=== PATIENT | male | born 1995 | race Caucasian/White ===

== ENCOUNTER → 2016-09-12 | Outpatient (CLI) | payer OTHER ==
[~2016-09-12] MED LIST: ACET-1256 PO; [UNRECOGNIZED DRUG - CODE] IV
--- NOTE | 2016-09-12 13:50 | DIAGNOSTIC IMAGING REPORT ---
ULTRASOUND OF THE THYROID GLAND CLINICAL HISTORY: Thyroid nodule. COMPARISON STUDY: Thyroid ultrasound dated 09/06/2015. TECHNIQUE: Real-time, grayscale, and color flow sonography of the thyroid gland is performed utilizing a high-frequency linear transducer. Images are reviewed in the transverse and longitudinal planes. FINDINGS: Right lobe: The right lobe of the thyroid gland is normal in size and homogeneous in echotexture, measuring 4.4 x 1.6 x 1.8 cm. A 2 mm hypoechoic nodule is present in the right lower pole. Left lobe: The left lobe of the thyroid gland is normal in size and homogeneous in echotexture, measuring 4.5 x 1.4 x 1.5 cm. A honeycomb nodule in the anterior left mid pole measures 0.8 x 0.3 x 0.6 cm (previously measured 0.5 x 0.3 x 0.5 cm). Isthmus: The thyroid isthmus is normal in appearance and measures 0.4 cm in AP diameter. IMPRESSION: 1. The thyroid gland is normal in size and echotexture. 2. Subcentimeter low suspicion nodules are similar to previous. Electronically signed by: Prieto Valdes M.D. 09/12/2016 1:49 PM Dictated Date/Time: 09/12/2016 1:47 PM
== END | disposition home or self-care (01) ==
LOC: C.ULTR 12:51
PROVIDERS: ATTEND Nurse Practitioner Family
DX: Z86.39 Personal history of other endocrine, nutritional and metabolic disease (principal)

== ENCOUNTER 2017-03-15 15:38 | Emergency (ER) | payer OTHER ==
[~2017-03-15] VITALS: Ht 167.6 cm; Wt 102.9 kg
[2017-03-15 15:41] VITALS: Ht 167.6 cm; Wt 102.9 kg
[2017-03-15] MEDS ORDERED: MoRPHine SULFATE 2 MG/ML CARP IV STA (16:09)
[2017-03-15 16:31] LABS: BASO % 0.2 %; BASO ABS # 0.02 K/uL (0-0.2); COMPLETE YES; EOS % 1.1 %; IG% 0.1 %; LYMPH ABS # 3.53 K/uL (1.2-3.4); MEAN CELL VOLUME 84.7 fL (80-100); MEAN CORPUSCULAR HEMOGLOBIN 28.2 pg (25-34); MEAN CORPUSCULAR HGB CONC 33.3 g/dl (32-36); MEAN PLATELET VOLUME 9.4 fL (7.4-10.4); MONO % 8.6 %; PLATELET COUNT 223 K/uL (130-400); RED BLOOD COUNT 5.67 M/uL (4.7-6.1); WHITE BLOOD COUNT 9.29 K/uL (4.8-10.8)
[2017-03-15 16:32] LABS: URINE APPEARANCE CLOUDY (CLEAR); URINE BILIRUBIN NEG (NEG); URINE COLOR DK YELLOW; URINE NITRITE NEG (NEG); URINE PH 5.5 (4.5-7.5); URINE SPECIFIC GRAVITY 1.033 (1.000-1.030); UROBILINOGEN NEG (NEG); ZZUR CULT IF INDIC CLEAN CATCH NO
[2017-03-15 16:36] LABS: MANUAL MICROSCOPIC REQUIRED? NO; REVIEW REQ? NO
[2017-03-15 16:51] LABS: CALCIUM 9.5 mg/dl (8.5-10.1); CREATININE 0.87 mg/dl (0.60-1.40); POTASSIUM 3.9 mmol/L (3.5-5.1)
--- NOTE | 2017-03-15 16:52 | DIAGNOSTIC IMAGING REPORT ---
PA CHEST RADIOGRAPH AND UPRIGHT AND SUPINE AP RADIOGRAPHS OF THE ABDOMEN CLINICAL HISTORY: Left upper quadrant abdominal pain. COMPARISON STUDY: Chest radiograph and abdominal series June 18, 2016. FINDINGS: Lung volumes are normal and lungs are clear. No pneumothorax or pleural effusion is present. Cardiac size is normal. Mediastinal contours are normal. There is no evidence of pulmonary edema. There is no free air. The bowel gas pattern is normal. No urinary calculi are identified. IMPRESSION: 1. No free air or evidence of bowel obstruction. 2. No acute cardiopulmonary findings. Electronically signed by: Mian Garces M.D. 03/15/2017 4:50 PM Dictated Date/Time: 03/15/2017 4:49 PM
[2017-03-15 17:19] VITALS: BP 126/82; PULSE 59; TEMP 36.8; O2SAT 98
--- NOTE | 2017-03-15 23:05 | EMERGENCY ROOM VISIT NOTE ---
History First contact with patient: 15:47 Chief Complaint: ABDOMINAL PAIN Stated Complaint: BLOATED,ABD PRESSURE Nursing Triage Summary: see triage note History of Present Illness The patient is a 21 year old white male who presents to the Emergency Room with complaints of abdominal fullness, pressure, and bloating that developed around 1 :30 today. He states he had a normal lunch. He did not eat anything unusual. 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 He has had similar symptoms in the past. Sometimes it has resulted in bowel obstruction, other times examinations have been normal. He states he normally has changed his bag 3 or 4 times by this point in the day but has only done it once so far today. There has been minimal output. He denies any nausea or vomiting. No fevers or chills. No abdominal trauma. A female accompanies him today. Review of Systems REVIEW OF SYSTEM: HEENT: No dizziness, visual problems, hearing loss, or tinnitus. There is no difficulty swallowing and no oral lesions are present. LYMPH: No adenopathy. PULMONARY: No cough, shortness of breath, sputum production or hemoptysis. CARDIOVASCULAR: No chest pain, palpitations, shortness of breath or peripheral edema. GASTROINTESTINAL: No diarrhea, nausea, vomiting. GENITOURINARY: No dysuria, frequency, urgency or nocturia. NEUROLOGIC: No weakness, muscle tenderness, epilepsy or history of neurological problems. MUSCULOSKELETAL: No history of joint tenderness/swelling. No history of arthritis or arthralgias. SKIN: No rashes or lesions. PSYCHIATRIC: No history of depression or mental illness. ENDOCRINE: No history of diabetes, thyroid disorders, or abnormal hair growth. Past Medical/Surgical History Medical Problems: (1) Attention deficit hyperactivity disorder (2) Familial polyposis (3) hemophilia (4) Hypopotassemia (5) Ileostomy Status Surgical Problems: (1) H/O colectomy Family History Cancer Diabetes mellitus Hypertension Social History Smoking Status: Never Smoker Smokeless Tobacco Use: No Alcohol Use: none Drug Use: none Marital Status: single Housing Status: lives with family Occupation Status: student Current/Historical Medications Scheduled PRN Acetaminophen (Tylenol), 1,000 MG PO Q6 PRN for Pain Antihemophilic Factor (Recombi (Recombinate), 1 DOSE IV UD PRN for Bleeding Physical Exam Vital Signs Date Time Temp Pulse Resp B/P (MAP) Pulse Ox O2 Delivery O2 Flow Rate FiO2 7/22/17 17:19 36.8 59 16 126/82 98 03/15/17 15:41 36.8 59 16 126/82 98 Room Air Physical Exam Gen.: Well-developed, well-nourished, young white male, in no acute distress. Sitting on a bed. Alert and oriented. Skin:Warm and dry with good turgor. No rashes or lesions. No ecchymosis or erythema. The patient is not diaphoretic. No abrasions. Heart: Heart RRR. No MGR. Peripheral pulses are 2+. Lungs: Lungs are clear to auscultation. No crackles rhonchi or wheezing. Good air movement. The patient is able to take a deep breath. Abdomen: Abdomen was inspected, auscultated, and palpated. Bowel sounds are infrequent but present 4. Soft, diffuse discomfort to palpation, worse in the left upper quadrant. No hepato-splenomegaly. No masses noted. No rebound. No pain over McBurney's point. No CVA tenderness. Ileostomy bag present. Musculoskeletal: Gross motor function of the upper and lower extremities is intact and unremarkable. Medical Decision & Procedures ER Provider Diagnostic Interpretation: Acute abdominal x-ray series obtained today was read by radiology as unremarkable. No evidence for obstruction. Laboratory Results 03/15/17 16:20 Red Blood Count 5.67, Mean Corpuscular Volume 84.7, Mean Corpuscular Hemoglobin 28.2, Mean Corpuscular Hemoglobin Concent 33.3, Mean Platelet Volume 9.4, Neutrophils (%) (Auto) 52.0, Lymphocytes (%) (Auto) 38.0, Monocytes (%) (Auto) 8.6, Eosinophils (%) (Auto) 1.1, Basophils (%) (Auto) 0.2, Neutrophils # (Auto) 4.83, Lymphocytes # (Auto) 3.53, Monocytes # (Auto) 0.80, Eosinophils # (Auto) 0.10, Basophils # (Auto) 0.02 03/15/17 16:20 Test 03/15/17 16:10 03/15/17 16:20 Urine Color DK YELLOW Urine Appearance CLOUDY (CLEAR) Urine pH 5.5 (4.5-7.5) Urine Specific [place] 1.033 (1.000-1.030) Urine Protein TRACE (NEG) Urine Glucose (UA) NEG (NEG) Urine Ketones TRACE (NEG) Urine Occult Blood NEG (NEG) Urine Nitrite NEG (NEG) Urine Bilirubin NEG (NEG) Urine Urobilinogen NEG (NEG) Urine Leukocyte Esterase NEG (NEG) Urine WBC (Auto) 1-5 /hpf (0-5) Urine RBC (Auto) 0-4 /hpf (0-4) Urine Hyaline Casts (Auto) 5-10 /lpf (0-5) Urine Epithelial Cells (Auto) 10-20 /lpf (0-5) Urine Bacteria (Auto) NEG (NEG) White Blood Count 9.29 K/uL (4.8-10.8) Red Blood Count 5.67 M/uL (4.7-6.1) Hemoglobin 16.0 g/dL (14.0-18.0) Hematocrit 48.0 % (42-52) Mean Corpuscular Volume 84.7 fL (80-100) Mean Corpuscular Hemoglobin 28.2 pg (25-34) Mean Corpuscular Hemoglobin Concent 33.3 g/dl (32-36) Platelet Count 223 K/uL (130-400) Mean Platelet Volume 9.4 fL (7.4-10.4) Neutrophils (%) (Auto) 52.0 % Lymphocytes (%) (Auto) 38.0 % Monocytes (%) (Auto) 8.6 % Eosinophils (%) (Auto) 1.1 % Basophils (%) (Auto) 0.2 % Neutrophils # (Auto) 4.83 K/uL (1.4-6.5) Lymphocytes # (Auto) 3.53 K/uL (1.2-3.4) Monocytes # (Auto) 0.80 K/uL (0.11-0.59) Eosinophils # (Auto) 0.10 K/uL (0-0.5) Basophils # (Auto) 0.02 K/uL (0-0.2) RDW Standard Deviation 41.2 fL (36.4-46.3) RDW Coefficient of Variation 13.4 % (11.5-14.5) Immature Granulocyte % (Auto) 0.1 % Immature Granulocyte # (Auto) 0.01 K/uL (0.00-0.02) Anion Gap 2.0 mmol/L (3-11) Est Creatinine Clear Calc Drug Dose 150.9 ml/min Estimated GFR () 143.0 Estimated GFR (Non- 123.4 BUN/Creatinine Ratio 8.0 (10-20) Calcium Level 9.5 mg/dl (8.5-10.1) Total Bilirubin 0.8 mg/dl (0.2-1) Direct Bilirubin 0.2 mg/dl (0-0.2) Aspartate Amino Transf (AST/SGOT) 26 U/L (15-37) Alanine Aminotransferase (ALT/SGPT) 42 U/L (12-78) Alkaline Phosphatase 81 U/L (45-117) Total Protein 7.7 gm/dl (6.4-8.2) Albumin 4.2 gm/dl (3.4-5.0) Lipase 169 U/L (73-393) CBC, chem panel, amylase, and lipase were obtained. They're all unremarkable. UA shows trace ketones. Otherwise unremarkable. Medications Administered Medications (Trade) Dose Ordered Sig/Teodora Route Start Time Stop Time Status Last Admin Dose Admin Morphine Sulfate (MoRPHine SULFATE INJ) 2 mg NOW STAT IV 03/15/17 16:09 03/15/17 16:10 DC 03/15/17 16:28 2 MG Morphine 2 mg IV ED Course Patient was educated regarding today's findings. Conservative care measures were discussed. IV was established. Labs were obtained. He was given morphine 2 mg IV for his abdominal discomfort. Acute abdominal x-ray series was also obtained. Patient was reevaluated. He stated that a large amount of air and green stool had just been produced in his ileostomy bag. His bloating sensation had entirely resolved. He verbalizes that he thinks there was just an air pocket in his bowel. Now feels better and desires discharge. I think this is reasonable. Return to the ED for any acute changes or worsening of symptoms. Maintain hydration. Follow up with his PCP as needed. Patient did request a work note to prove that he was here today. Medical Decision Possibility of gastroparesis, abdominal spasm, muscle strain, obstruction, viral illness, and food borne illness were considered among others Blood Pressure Screening Patient's blood pressure: Normal blood pressure Impression Primary Impression: Left upper quadrant pain Departure Information Referrals Farzana Goel (PCP) Patient Instructions My [facility]
[2017-03-24] MEDS ORDERED: [UNRECOGNIZED DRUG - CODE] IV (16:35)
== END 2017-03-15 17:20 | disposition home or self-care (01) ==
LOC: C.EDB 15:39
DX: R10.12 Left upper quadrant pain (principal); D66 Hereditary factor VIII deficiency; Z93.2 Ileostomy status; Z90.49 Acquired absence of other specified parts of digestive tract; Z83.3 Family history of diabetes mellitus; Z82.49 Family history of ischemic heart disease and other diseases of the circulatory system

== ENCOUNTER 2017-03-21 18:16 | Emergency (ER) | payer OTHER ==
[~2017-03-21] VITALS: Ht 172.7 cm; Wt 104.6 kg
[2017-03-21 18:19] VITALS: TEMP 36.7; Ht 172.7 cm; Wt 104.6 kg
[2017-03-21] MEDS ORDERED: FACTOR 8/HUMATE-P/RECOMBINATE ONE (19:15)
[2017-03-21] MEDS ORDERED: RECOMBINATE INTER IV ONE (19:15)
--- NOTE | 2017-03-21 19:34 | DIAGNOSTIC IMAGING REPORT ---
HEAD WITHOUT CONTRAST (CT) CT DOSE: 638.56 mGycm HISTORY: Trauma right head impact, hemophilia TECHNIQUE: Multiaxial CT images of the head were performed without the use of intravenous contrast. A dose lowering technique was utilized adhering to the principles of ALARA. Comparison: None. Findings: The paranasal sinuses and mastoid air cells are clear. The calvarium and skull base are intact. The ventricles and sulci are within normal limits. There is no mass, hematoma, midline shift, or acute infarct. Impression: No acute intracranial abnormality. The above report was generated using voice recognition software. It may contain grammatical, syntax or spelling errors. Electronically signed by: Greg Duque M.D. 03/21/2017 7:33 PM Dictated Date/Time: 03/21/2017 7:32 PM
[2017-03-21] MEDS ORDERED: ACETAMINOPHEN 500 MG TAB PO STA (19:59)
--- NOTE | 2017-03-21 20:35 | EMERGENCY ROOM VISIT NOTE ---
History Report prepared by Meseret: Austyn Carmen Under the Supervision of: Dr. Vickey Delatorre M.D. First contact with patient: 18:31 Chief Complaint: HEAD INJURY (MINOR) Stated Complaint: HIT HEAD HAVE HEMOPHILIA BLEED FACTOR History of Present Illness The patient is a 22 year old male who presents to the Emergency Room with complaints of constant headache beginning about 7 hours. The patient states that he was doing yard work and stepped the wrong way. He reports that he stepped on a rake, and it flew up and hit him in the head. The patient notes that he hit himself in the right hinduism. He states that he came to the ED because he has a history of Hemophilia A. The patient reports that his hematopathologist told him to go to the ED, have a CT scan performed, and receive a 100% replacement with any head trauma. He notes that he has had a history of internal bleeding before. Pt denies LOC, visual changes, neck pain, chest pain, breathing difficulties, nausea, vomiting, abdominal pain, back pain , extremity pain, numbness, weakness, open wounds, active bleeding, or other complaints. Source of History: patient Onset: 7 hours ago Position: head Quality: ache Timing: constant Review of Systems See HPI for pertinent positives and negatives. A total of ten systems were reviewed and were otherwise negative. Past Medical & Surgical Medical Problems: (1) Attention deficit hyperactivity disorder (2) Familial polyposis (3) hemophilia (4) Hypopotassemia (5) Ileostomy Status Surgical Problems: (1) H/O colectomy Family History Cancer Diabetes mellitus Hypertension Social History Smoking Status: Current Every Day Smoker Alcohol Use: none Drug Use: none Marital Status: single Housing Status: lives with family Occupation Status: student Current/Historical Medications Scheduled PRN Acetaminophen (Tylenol), 1,000 MG PO Q6H PRN for Pain Antihemophilic Factor (Recombi (Recombinate), 1 DOSE IV UD PRN for Bleeding Allergies Coded Allergies: NSAIDs (Verified Allergy, Unknown, hemophilia, 03/15/17) Aspirin (Verified Adverse Reaction, Unknown, hemophilia, 03/15/17) Physical Exam Vital Signs Date Time Temp Pulse Resp B/P (MAP) Pulse Ox O2 Delivery O2 Flow Rate FiO2 03/21/17 18:19 36.7 85 18 136/86 99 Room Air Physical Exam GENERAL: Awake, alert, well-appearing, in no distress HENT: Normocephalic, atraumatic. Oropharynx unremarkable. Mild edema and tenderness to the right hinduism area. EYES: Normal conjunctiva. Sclera non-icteric. NECK: Supple. No nuchal rigidity. FROM. No JVD. RESPIRATORY: Clear to auscultation. CARDIAC: Regular rate, normal rhythm. Extremities warm and well perfused. Pulses equal. ABDOMEN: Soft, non-distended. No tenderness to palpation. No rebound or guarding. No masses. Ileostomy on the left lower side. RECTAL: Deferred. MUSCULOSKELETAL: Chest examination reveals no tenderness. The back is symmetrical on inspection without obvious abnormality. There is no CVA tenderness to palpation. No joint edema. LOWER EXTREMITIES: Calves are equal size bilaterally and non-tender. No edema. No discoloration. NEURO: Normal sensorium. No sensory or motor deficits noted. SKIN: No rash or jaundice noted. Medical Decision & Procedures ER Provider Diagnostic Interpretation: Radiology results as stated below per my review and radiologist interpretation: HEAD WITHOUT CONTRAST (CT) CT DOSE: 638.56 mGycm HISTORY: Trauma right head impact, hemophilia TECHNIQUE: Multiaxial CT images of the head were performed without the use of intravenous contrast. A dose lowering technique was utilized adhering to the principles of ALARA. Comparison: None. Findings: The paranasal sinuses and mastoid air cells are clear. The calvarium and skull base are intact. The ventricles and sulci are within normal limits. There is no mass, hematoma, midline shift, or acute infarct. Impression: No acute intracranial abnormality. The above report was generated using voice recognition software. It may contain grammatical, syntax or spelling errors. Electronically signed by: Greg Duque M.D. 03/21/2017 7:33 PM Dictated Date/Time: 03/21/2017 7:32 PM Medications Administered Medications (Trade) Dose Ordered Sig/Teodora Route Start Time Stop Time Status Last Admin Dose Admin Antihemophilic Factor 4710 inter.unit/Syringe 15 ml @ 5 mls/min NOW ONCE IV 03/21/17 19:15 03/21/17 19:18 DC 03/21/17 19:35 5 MLS/MIN ED Course 182: I reviewed the patient's previous records. 1840: The patient was evaluated in room C05. A complete history and physical exam was performed. 1914: Ordered Antihemophilic Factor 4710 inter.unit/Syringe 15 ml @ 5 mls/min Protocol IV 1958: Ordered Tylenol Tab 1000 mg PO 1800: I reevaluated the patient. Discussed results and discharge instructions: he verbalized understanding and agreement. The patient is ready for discharge. Medical Decision Prior records/ancillary studies reviewed. Triage Nursing notes reviewed and agree them. Additional history obtained from the patient's girlfriend. The patient's history was concerning for traumatic head injury along with hemophilia Differential diagnosis: Etiologies such as contusion, fracture, subdural hematoma, concussion, epidural hematoma, intraparenchymal hemorrhage, as well as other traumatic pathologies were entertained. Physical examination findings: As above. ER treatment provided: P.o. Tylenol IV factor replacement after consultation with pharmacy. The patient received 4710 international units. On reassessment the patient felt better. Diagnostics interpreted by me: Imaging studies: CT scan as above It appears the patient has a very mild closed head injury. His protocol as for CT imaging and factor replacement. This was done in accordance with standard protocol. By the evaluation outlined above emergent etiologies such as fracture, subdural hematoma, epidural hematoma, intraparenchymal hemorrhage, as well as others were deemed relatively unlikely. The patient was informed about the findings as listed above. All questions were answered and he was pleased with the treatment. Return instructions were outlined and the patient was discharged in stable condition. Referral: The patient was referred back to his primary care physician for follow-up in 2 to 3 days for a recheck of the current condition. Head Trauma GCS Score: 15 Impression Primary Impression: Closed head injury Additional Impression: hemophilia Scribe Attestation The scribe's documentation has been prepared under my direction and personally reviewed by me in its entirety. I confirm that the note above accurately reflects all work, treatment, procedures, and medical decision making performed by me. Departure Information Dispostion Home / Self-Care Referrals Farzana Goel (PCP) Forms HOME CARE DOCUMENTATION FORM, IMPORTANT VISIT INFORMATION Patient Instructions My [facility] Additional Instructions Rest and avoid strenuous activities for the next few days. NO ALCOHOL OR DRUGS! Avoid stimulants like caffeine, red bull, mountain dew, "energy" drinks, etc. Tylenol(acetaminophen) may be used for headaches. Use 1000mg every six hours as needed. Avoid using more than 4000mg in a 24 hour period. Avoid anti-inflammatories such as aspirin, ibuprofen, Alleve, naprosyn, Motrin, or Advil as these can interfere with blood clotting and lead to bleeding within the brain after a traumatic injury. Problems could arise over the next 24 to 48 hours. You should not be left alone and MUST go to the hospital immediately if you: -Have a headache that suddenly gets worse. -Have any bleeding or bruising issues. -Are very drowsy or cannot be woken up from sleep. -Can't recognize people or places. -Have repeated vomiting. -Behave unusually, seemed confused, or start acting irritable. -Have a seizure (arms and legs start jerking uncontrollably). -Have weak or numb arms or legs. -Are unsteady on your feet -Experience slurred speech or difficulty speaking. Follow-up with your primary care physician in 2 to 3 days for a recheck of your current condition. Problem Qualifiers
[2017-03-21 20:47] VITALS: BP 149/92; PULSE 67; O2SAT 100
[2017-03-24] MEDS ORDERED: [UNRECOGNIZED DRUG - CODE] IV (16:35)
== END 2017-03-21 20:49 | disposition home or self-care (01) ==
LOC: C.EDB 18:17 → C.EDC 20:49
DX: S09.90XA Unspecified injury of head, initial encounter (principal); D66 Hereditary factor VIII deficiency; W22.8XXA Striking against or struck by other objects, initial encounter; F90.9 Attention-deficit hyperactivity disorder, unspecified type; Z93.2 Ileostomy status; Z90.49 Acquired absence of other specified parts of digestive tract; Z80.9 Family history of malignant neoplasm, unspecified; Z83.3 Family history of diabetes mellitus; Z82.49 Family history of ischemic heart disease and other diseases of the circulatory system; F17.210 Nicotine dependence, cigarettes, uncomplicated

== ENCOUNTER 2017-03-24 21:24 | Emergency (ER) | payer OTHER ==
[~2017-03-24] VITALS: Ht 170.2 cm; Wt 105.3 kg
[~2017-03-24 21:24] MED LIST changes: -ACET-1256 PO
[2017-03-24] MEDS ORDERED: ACET-1256 PO (21:27)
[2017-03-24 21:31] VITALS: TEMP 36.6; Ht 170.2 cm; Wt 105.3 kg
[2017-03-24] MEDS ORDERED: ACETAMINOPHEN 500 MG TAB PO STA (21:38)
[2017-03-24] MEDS ORDERED: FACTOR 8/HUMATE-P/RECOMBINATE ONE (22:00)
[2017-03-24 22:01] LABS: BASO % 0.3 %; BASO ABS # 0.03 K/uL (0-0.2); COMPLETE YES; EOS % 0.7 %; HEMATOCRIT 48.1 % (42-52); IG% 0.4 %; LYMPH % 41.2 %; LYMPH ABS # 4.63 K/uL (1.2-3.4); MEAN CELL VOLUME 85.6 fL (80-100); MEAN CORPUSCULAR HEMOGLOBIN 28.8 pg (25-34); MEAN CORPUSCULAR HGB CONC 33.7 g/dl (32-36); MEAN PLATELET VOLUME 9.7 fL (7.4-10.4); MONO % 7.9 %; NEUT % 49.5 %; PLATELET COUNT 224 K/uL (130-400); RED BLOOD COUNT 5.62 M/uL (4.7-6.1); WHITE BLOOD COUNT 11.23 K/uL (4.8-10.8)
[2017-03-24 22:10] LABS: PARTIAL THROMBOPLASTIN RATIO 1.6; PROTHROMBIN TIME (PATIENT) 10.3 SECONDS (9.0-12.0)
--- NOTE | 2017-03-24 22:16 | DIAGNOSTIC IMAGING REPORT ---
CT SCAN OF THE BRAIN WITHOUT IV CONTRAST CLINICAL HISTORY: Head injury. COMPARISON STUDY: CT of the brain dated 03/21/2017. TECHNIQUE: Unenhanced axial CT scan of the brain is performed from the vertex to the skull base. Automated dose control exposure was utilized. A dose lowering technique was utilized adhering to the principles of ALARA. CT DOSE: Reported separately under the concurrently performed CT scan of the facial bones. FINDINGS: Brain parenchyma: The brain parenchyma is normal in appearance. There is no hemorrhage, mass effect, or evidence of acute territorial ischemia by CT criteria. Petersen-white matter is preserved. No extra-axial fluid collection is seen. Ventricles, sulci, cisterns: Normal in configuration. Intracranial vasculature: The visualized intracranial vasculature at the skull base is normal in appearance. Calvarium: There is no depressed calvarial fracture. Sinuses and mastoids: The visualized paranasal sinuses are clear. The mastoid air cells are well pneumatized. Orbits: The bony orbits are grossly intact. IMPRESSION: No acute intracranial abnormality and no significant change from 03/21/2017. Electronically signed by: Prieto Valdes M.D. 03/24/2017 10:15 PM Dictated Date/Time: 03/24/2017 10:14 PM
--- NOTE | 2017-03-24 22:19 | DIAGNOSTIC IMAGING REPORT ---
CT SCAN OF THE FACIAL BONES WITHOUT IV CONTRAST CLINICAL HISTORY: Head injury. COMPARISON STUDY: CT of the brain performed concurrently on 03/24/2017. TECHNIQUE: High-resolution CT scan of the facial bones is performed. Images are reviewed in the axial, sagittal, and coronal planes. IV contrast was not administered for this examination. A dose lowering technique was utilized adhering to the principles of ALARA. CT DOSE: 982.62 mGy.cm FINDINGS: The skeletal structures are well mineralized. There is no evidence of facial bone fracture. The bony orbits are intact and the orbital contents are within normal limits. The zygomatic arches, nasal bones, and pterygoid plates are preserved. The maxilla and mandible are intact. There are no layering blood products within the paranasal sinuses. The sinuses and mastoids are clear. The visualized calvarium and upper cervical spine are maintained. Partially imaged brain parenchyma is within normal limits. IMPRESSION: There is no evidence of facial bone fracture. Electronically signed by: Prieto Valdes M.D. 03/24/2017 10:18 PM Dictated Date/Time: 03/24/2017 10:13 PM
[2017-03-24] MEDS ORDERED: RECOMBINATE INTER IV ONE (22:30)
[2017-03-24 22:31] LABS: ALB/GLOB RATIO 1.1 (0.9-2); CALCIUM 9.6 mg/dl (8.5-10.1); MAGNESIUM 1.9 mg/dl (1.8-2.4); POTASSIUM 3.7 mmol/L (3.5-5.1)
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
[2017-03-25 00:02] VITALS: BP 126/73; PULSE 61; O2SAT 97
== END 2017-03-25 00:05 | disposition home or self-care (01) ==
LOC: C.EDB 21:25 → C.EDA 03-25 00:05
DX: S09.90XA Unspecified injury of head, initial encounter (principal); W22.8XXA Striking against or struck by other objects, initial encounter; F90.9 Attention-deficit hyperactivity disorder, unspecified type; Z93.2 Ileostomy status; Z80.9 Family history of malignant neoplasm, unspecified; Z83.3 Family history of diabetes mellitus; Z82.49 Family history of ischemic heart disease and other diseases of the circulatory system

== ENCOUNTER 2017-06-13 23:09 | Emergency (ER) | payer OTHER ==
[~2017-06-13] VITALS: Ht 170.2 cm; Wt 111.1 kg
[~2017-06-13 23:09] MED LIST changes: +ACET-1256 PO
[2017-06-13 23:13] VITALS: Ht 170.2 cm; Wt 111.1 kg
[2017-06-14 00:22] LABS: BASO % 0.2 %; BASO ABS # 0.02 K/uL (0-0.2); COMPLETE YES; EOS % 0.6 %; HEMATOCRIT 47.9 % (42-52); IG% 0.2 %; LYMPH ABS # 4.76 K/uL (1.2-3.4); MEAN CELL VOLUME 84.9 fL (80-100); MEAN CORPUSCULAR HEMOGLOBIN 28.5 pg (25-34); MEAN CORPUSCULAR HGB CONC 33.6 g/dl (32-36); MEAN PLATELET VOLUME 9.6 fL (7.4-10.4); MONO % 7.3 %; NEUT % 54.7 %; PLATELET COUNT 231 K/uL (130-400); RED BLOOD COUNT 5.64 M/uL (4.7-6.1); WHITE BLOOD COUNT 12.86 K/uL (4.8-10.8)
[2017-06-14 00:41] LABS: BUN/CREATININE RATIO 9.3 (10-20); CALCIUM 9.5 mg/dl (8.5-10.1); CREATININE 0.92 mg/dl (0.60-1.40); POTASSIUM 3.7 mmol/L (3.5-5.1)
[2017-06-14] MEDS ORDERED: TRAMADOL HCL 50 MG TAB PO STA (00:43)
[2017-06-14 01:00] VITALS: BP 146/86; PULSE 68; TEMP 36.8; O2SAT 97
--- NOTE | 2017-06-14 01:35 | DIAGNOSTIC IMAGING REPORT ---
KUB CLINICAL HISTORY: Left lower quadrant abdominal pain. FINDINGS: 3 AP supine abdominal radiographs are compared to study dated 03/15/2017 and correlated with abdominal CT dated 05/05/2016. There is a nonobstructed abdominal bowel gas pattern. No evidence of intraperitoneal free air is seen on these supine views. There are no abnormal abdominal calcifications. The bony structures appear intact. IMPRESSION: Nonobstructed abdominal bowel gas pattern. Electronically signed by: Prieto Valdes M.D. 06/14/2017 1:34 AM Dictated Date/Time: 06/14/2017 1:33 AM
--- NOTE | 2017-06-14 01:39 | EMERGENCY ROOM VISIT NOTE ---
History Report prepared by Meseret: Carmenza Peralta Under the Supervision of: Dr. Nadine Ferreira D.O. First contact with patient: 23:35 Chief Complaint: ABDOMINAL PAIN Stated Complaint: ABDOMINAL PAIN Nursing Triage Summary: pt states has an iliostomy and is having abd pain and is having some red coming out History of Present Illness The patient is a 22 year old male who presents to the Emergency Room with complaints of worsening abdominal pain starting today. The patient states that he has an ileostomy for FFP. He reports that he is having more pain than normal and has had irritation around his stoma. He notes that when he eats or drinks something red, the output becomes bright red. He states that today he drank fruit punch and now it is coming out dark red. The patient states that the last time he had dark red output was when he had a prolapse. He states that normally it would be bright red, not dark red. He notes he has been having normal amounts of output. He complains that sometimes he has a little bleeding from his skin. The patient denies cough, fever, chills, urinary symptoms, nausea, and vomiting. He currently rates his pain as a 4/10 in severity. Source of History: patient Onset: today Position: abdomen Symptom Intensity: 4/10 Timing: worsening Modifying Factors (Worsening): other (eating red things) Associated Symptoms: No fevers, No chills, No cough, No nausea, No vomiting , No urinary symptoms Note: The patient complains of a little bleeding from his skin. Review of Systems Pt denies headache, change in vision, fevers, chest pain, shortness of breath, nausea, vomiting, diarrhea, pain with urination, and melena. Past Medical & Surgical Medical Problems: (1) Attention deficit hyperactivity disorder (2) Familial polyposis (3) hemophilia (4) Hypopotassemia (5) Ileostomy Status Surgical Problems: (1) H/O colectomy Family History Cancer Diabetes mellitus Hypertension Social History Smoking Status: Never Smoker Alcohol Use: none Drug Use: none Marital Status: in relationship Housing Status: lives with family Occupation Status: employed Current/Historical Medications Scheduled PRN Acetaminophen (Tylenol), 1,000 MG PO Q6H PRN for Pain Antihemophilic Factor (Recombi (Recombinate), 1 DOSE IV UD PRN for Bleeding Allergies Coded Allergies: NSAIDs (Verified Allergy, Unknown, hemophilia, 06/14/17) Aspirin (Verified Adverse Reaction, Unknown, hemophilia, 06/14/17) Physical Exam Vital Signs Date Time Temp Pulse Resp B/P (MAP) Pulse Ox O2 Delivery O2 Flow Rate FiO2 06/14/17 01:00 36.8 68 18 146/86 97 Room Air 06/13/17 23:13 37.1 78 18 143/86 97 Room Air Physical Exam GENERAL: alert, well appearing, well nourished, no distress, non-toxic EYE EXAM: normal conjunctiva, PERRL and EOM's grossly intact OROPHARYNX: no exudate, no erythema, lips, buccal mucosa, and tongue normal and mucous membranes are moist NECK: supple, no nuchal rigidity, no adenopathy, non-tender LUNGS: Clear to auscultation. Normal chest wall mechanics HEART: no murmurs, S1 normal and S2 normal ABDOMEN: abdomen soft, non-tender, normo-active bowel sounds, no masses, no rebound or guarding. Left abdominal wall ileostomy. Reddish brown liquid in bag. Upon removal of the bag, some friable tissue noted with small amount of bleeding. No surrounding erythema or evidence of cellulitis. No gross bleeding from stoma itself. Other surgical scars noted on the abdomen and are well healed. Bedside Hemoccult of liquid from patient's ostomy bag faintly heme positive. BACK: Back is symmetrical on inspection and there is no deformity, no midline tenderness, no CVA tenderness. SKIN: no rashes and no bruising UPPER EXTREMITIES: upper extremities are grossly normal. Full range of motion, normal pulses. LOWER EXTREMITIES: No pitting edema. Full range of motion, normal pulses. NEURO EXAM: Normal sensorium, cranial nerves II-XII grossly intact, normal speech, no gross weakness of arms, no gross weakness of legs. Medical Decision & Procedures ER Provider Diagnostic Interpretation: Radiology results have been interpreted by the radiologist and reviewed by me. KUB CLINICAL HISTORY: Left lower quadrant abdominal pain. FINDINGS: 3 AP supine abdominal radiographs are compared to study dated 03/15/2017 and correlated with abdominal CT dated 05/05/2016. There is a nonobstructed abdominal bowel gas pattern. No evidence of intraperitoneal free air is seen on these supine views. There are no abnormal abdominal calcifications. The bony structures appear intact. IMPRESSION: Nonobstructed abdominal bowel gas pattern. Electronically signed by: Prieto Valdes M.D. 06/14/2017 1:34 AM Dictated Date/Time: 06/14/2017 1:33 AM Per me: No definite SBO. Laboratory Results 06/14/17 00:07 Red Blood Count 5.64, Mean Corpuscular Volume 84.9, Mean Corpuscular Hemoglobin 28.5, Mean Corpuscular Hemoglobin Concent 33.6, Mean Platelet Volume 9.6, Neutrophils (%) (Auto) 54.7, Lymphocytes (%) (Auto) 37.0, Monocytes (%) (Auto) 7.3, Eosinophils (%) (Auto) 0.6, Basophils (%) (Auto) 0.2, Neutrophils # (Auto) 7.03, Lymphocytes # (Auto) 4.76, Monocytes # (Auto) 0.94, Eosinophils # (Auto) 0.08, Basophils # (Auto) 0.02 06/14/17 00:07 Test 06/14/17 00:07 White Blood Count 12.86 K/uL (4.8-10.8) Red Blood Count 5.64 M/uL (4.7-6.1) Hemoglobin 16.1 g/dL (14.0-18.0) Hematocrit 47.9 % (42-52) Mean Corpuscular Volume 84.9 fL (80-100) Mean Corpuscular Hemoglobin 28.5 pg (25-34) Mean Corpuscular Hemoglobin Concent 33.6 g/dl (32-36) Platelet Count 231 K/uL (130-400) Mean Platelet Volume 9.6 fL (7.4-10.4) Neutrophils (%) (Auto) 54.7 % Lymphocytes (%) (Auto) 37.0 % Monocytes (%) (Auto) 7.3 % Eosinophils (%) (Auto) 0.6 % Basophils (%) (Auto) 0.2 % Neutrophils # (Auto) 7.03 K/uL (1.4-6.5) Lymphocytes # (Auto) 4.76 K/uL (1.2-3.4) Monocytes # (Auto) 0.94 K/uL (0.11-0.59) Eosinophils # (Auto) 0.08 K/uL (0-0.5) Basophils # (Auto) 0.02 K/uL (0-0.2) RDW Standard Deviation 42.2 fL (36.4-46.3) RDW Coefficient of Variation 13.8 % (11.5-14.5) Immature Granulocyte % (Auto) 0.2 % Immature Granulocyte # (Auto) 0.03 K/uL (0.00-0.02) Anion Gap 9.0 mmol/L (3-11) Est Creatinine Clear Calc Drug Dose 149.8 ml/min Estimated GFR () 136.4 Estimated GFR (Non- 117.6 BUN/Creatinine Ratio 9.3 (10-20) Lactic Acid Level 1.3 mmol/L (0.4-2.0) Calcium Level 9.5 mg/dl (8.5-10.1) Laboratory results per my review. Medications Administered Medications (Trade) Dose Ordered Sig/Teodora Route Start Time Stop Time Status Last Admin Dose Admin Tramadol HCl (Ultram Tab) 50 mg NOW STAT PO 06/14/17 00:43 06/14/17 00:44 DC 06/14/17 00:48 50 MG Tramadol HCl (Ultram Home Pack) 1 homepack UD ONCE PO 06/14/17 02:00 06/14/17 02:00 DC 06/14/17 01:48 1 HOMEPACK ED Course 2336: The patient was evaluated in room A9B. A complete history and physical exam was performed. 0043: Ordered Tramadol HCl 50 mg PO. 0054: Upon reevaluation, the patient is feeling better. I discussed the findings and the treatment plan with the patient. He verbalizes agreement and understanding. The patient was discharged home. 0200: Ordered Tramadol HCl 1 homepack PO. Medical Decision Etiologies such as appendicitis, diverticulitis, PUD, biliary pathology, UTI, pancreatitis, obstruction, mesenteric ischemia, aortic pathology, infections, inflammatory bowel disease, renal colic, as well as others were entertained. Patient well-appearing here, abdominal exam reassuring despite patient history, labs reassuring. Patient states that he chronically has an elevated white blood cell count. Discussed with patient given extensive past medical history and ileostomy, to have a low threshold for any evolving symptoms and to return to the ER immediately. He verbalized understanding was agreeable with plan. Patient aware of all results. At this time I feel the family positive Hemoccult testing bedside could possibly be due to the slightly irritated friable tissue at the edge of the stoma. Discussed with patient close follow- up with wound care clinic or stoma clinic, as patient has had issues with this in the past. I feel patient is reliable to return to the ER for any issues and to follow closely as an outpatient. Impression Primary Impression: Abdominal pain Additional Impressions: GI bleed Stoma dermatitis Scribe Attestation The scribe's documentation has been prepared under my direction and personally reviewed by me in its entirety. I confirm that the note above accurately reflects all work, treatment, procedures, and medical decision making performed by me. Departure Information Dispostion Home / Self-Care Referrals Farzana Goel (PCP) Forms HOME CARE DOCUMENTATION FORM, IMPORTANT VISIT INFORMATION Patient Instructions My [facility] Additional Instructions Please continue regular medications as prescribed. Please continue to closely monitor the skin around her stoma as a result small amount of irritation and bleeding noted. If you notice persistent blood, feel that the drainage into the bag is becoming black or more grossly bloody, you develop vomiting, fevers, worsening abdominal pain, dizziness, or any other or concerning symptoms, please return to the ER immediately. Please refrain from drinking or eating any substance that is read so as to not confused the possibility of blood in your bag contents. Please note that your white blood cell count here was mildly elevated. Your red blood cell counts were normal. Problem Qualifiers Primary Impression: Abdominal pain Abdominal location: periumbilical Qualified Codes: R10.33 - Periumbilical pain Additional Impressions: GI bleed GI bleed type/associated pathology: unspecified gastrointestinal hemorrhage type Qualified Codes: K92.2 - Gastrointestinal hemorrhage, unspecified
[2017-06-14] MEDS ORDERED: TRAMADOL HCL 50 MG HOME PACK ONE (01:46)
[2017-06-14] MEDS ORDERED: TRAMADOL HCL 50 MG HOME PACK PO ONE (02:00)
== END 2017-06-14 01:45 | disposition home or self-care (01) ==
LOC: C.EDB 23:10 → C.EDA 06-14 01:45
DX: R10.33 Periumbilical pain (principal); K92.2 Gastrointestinal hemorrhage, unspecified; F90.9 Attention-deficit hyperactivity disorder, unspecified type; D66 Hereditary factor VIII deficiency; E87.6 Hypokalemia; Z83.3 Family history of diabetes mellitus; Z82.49 Family history of ischemic heart disease and other diseases of the circulatory system

== ENCOUNTER 2017-06-17 03:11 | Emergency (ER) | payer OTHER ==
[~2017-06-17] VITALS: Ht 170.2 cm; Wt 111.1 kg
[2017-06-17 03:16] VITALS: TEMP 36.6; Ht 170.2 cm; Wt 111.1 kg
[2017-06-17] MEDS ORDERED: ONDANSETRON INJ 2 MG/ML 2 ML VIAL IV STA (03:39)
[2017-06-17] MEDS ORDERED: SODIUM CHLORIDE 0.9% 1000ML 1,000 ML IV ONE (03:45)
[2017-06-17 03:57] LABS: MEAN CELL VOLUME 84.4 fL (80-100); MEAN CORPUSCULAR HEMOGLOBIN 29.7 pg (25-34); MEAN CORPUSCULAR HGB CONC 35.2 g/dl (32-36); MEAN PLATELET VOLUME 9.7 fL (7.4-10.4); PLATELET COUNT 240 K/uL (130-400); RED BLOOD COUNT 5.69 M/uL (4.7-6.1); WHITE BLOOD COUNT 13.16 K/uL (4.8-10.8)
[2017-06-17] MEDS ORDERED: OPTIRAY 320 IV PRN (04:15)
[2017-06-17 04:20] LABS: BUN/CREATININE RATIO 6.3 (10-20); CALCIUM 9.4 mg/dl (8.5-10.1); CREATININE 0.97 mg/dl (0.60-1.40); POTASSIUM 3.8 mmol/L (3.5-5.1)
[2017-06-17 04:22] LABS: ALB/GLOB RATIO 1.1 (0.9-2)
[2017-06-17 04:49] LABS: BASO ABS # 0.12 K/uL (0-0.2); BASOPHIL % 0.9 % (0-2); COMPLETE YES; LYMPH ABS # 5.41 K/uL (1.2-3.4); LYMPHOCYTE % 41.1 %; MYELOCYTE % 0.9 %; NEUTROPHILS % 43.7 %; VARIANT LYM ABS # 1.65 K/uL; VARIANT LYMPHOCYTE % 12.5 %
--- NOTE | 2017-06-17 07:09 | DIAGNOSTIC IMAGING REPORT ---
ABD/PELVIS IV AND ORAL CONT CT DOSE: 1168.87 mGy.cm HISTORY: Pain. Nausea. Ab pain near stoma (left side abd pain) TECHNIQUE: Multiaxial CT images of the abdomen and pelvis were performed following the use of intravenous and oral contrast. A dose lowering technique was utilized adhering to the principles of ALARA. COMPARISON STUDY: 05/05/2016 FINDINGS: Patient is again noted to be status post complete colectomy. There has been revision with takedown of the right anterior ostomy and placement of a left mid abdominal ostomy. There are no obstructive bowel characteristics. The small bowel pattern is considered unremarkable within limitations of a small amount of oral contrast. Lung bases are clear. Liver spleen and pancreas appear uniform. Kidneys are considered negative for hydronephrosis. There are findings of a midline incision. Bladder is midline. There is no significant abdominal pelvic or inguinal derek pathology. Several small reactive inguinal nodes are present unaltered from the prior study. There is no evidence for abscess or collection. Gallbladder is mildly contracted. IMPRESSION: 1. Interval revision of the patient's ostomy with a interval takedown of the right sided ostomy and placement of a left anterior ostomy. 2. Changes consistent with prior colectomy. 3. No evidence for abscess collection or obstruction. 4. No acute process is noted. The above report was generated using voice recognition software. It may contain grammatical, syntax or spelling errors. Electronically signed by: Greg Duque M.D. 06/17/2017 7:08 AM Dictated Date/Time: 06/17/2017 7:00 AM
[2017-06-17 07:24] VITALS: BP 114/52; PULSE 58; O2SAT 99
--- NOTE | 2017-06-17 21:59 | EMERGENCY ROOM VISIT NOTE ---
History First contact with patient: 03:19 Chief Complaint: ABDOMINAL PAIN Stated Complaint: STOMACH PAIN Nursing Triage Summary: see triage note History of Present Illness The patient is a 22 year old male who presents to the Emergency Room with complaints of left-sided abdominal pain for the past several days. The patient was initially seen at this facility a few days ago with this complaint. At that time the patient was noted to have some mild irritation of his stoma and a slightly elevated white blood cell count. Evidently the patient chronically has an elevated white blood cell count. He has had multiple abdominal surgeries following a colectomy. The patient has been eating and drinking as normal. He feels like his colostomy output is normal. He has not begun new medications but has slowly developed increasing pain. He has been using tramadol with some minimal improvement of his symptoms. The patient feels like he is not improving and elected to return to the ER today. At his visit a few days ago he elected against CT imaging, however now he feels that he would like this to make sure that nothing more insidious is occurring. He rates his overall discomfort a 5/10. Review of Systems More than 10 systems were reviewed and otherwise negative with the exception of history of present illness. Past Medical/Surgical History Medical Problems: (1) Attention deficit hyperactivity disorder (2) Familial polyposis (3) hemophilia (4) Hypopotassemia (5) Ileostomy Status Surgical Problems: (1) H/O colectomy Family History Cancer Diabetes mellitus Hypertension Social History Smoking Status: Never Smoker Alcohol Use: none Drug Use: none Marital Status: in relationship Housing Status: lives with family Occupation Status: employed Current/Historical Medications No Active Prescriptions or Reported Meds Physical Exam Vital Signs Date Time Temp Pulse Resp B/P (MAP) Pulse Ox O2 Delivery O2 Flow Rate FiO2 06/17/17 07:24 58 20 114/52 99 06/17/17 06:42 65 18 135/78 98 Room Air 06/17/17 05:10 66 18 124/66 96 Room Air 06/17/17 03:16 36.6 81 18 137/86 98 Room Air Physical Exam VITALS: Vitals are noted on the nurse's note and reviewed by myself. Vital signs stable. GENERAL: Well-developed, well-nourished, white male, who is in no acute distress and resting comfortably. Patient is cooperative with the examination. HEAD: Normocephalic atraumatic. HEART: Regular rate and rhythm without murmurs gallops or rubs. LUNGS: Clear to auscultation bilaterally without wheezes, rales or rhonchi. No retractions or accessory muscle use. ABDOMEN: Positive normal bowel sounds x 4. Soft, nontender, without masses or organomegaly. No significant tenderness around the left sided colectomy and stoma. The stoma itself appears slightly irritated without active bleeding or significant friability. MUSCULOSKELETAL: No muscle atrophy, erythema, or edema noted. Full range of motion without joint tenderness in all extremities. NEURO: Patient was alert and oriented to person place and time. CN II through XII grossly intact. Medical Decision & Procedures ER Provider Diagnostic Interpretation: ABD/PELVIS IV AND ORAL CONT CT DOSE: 1168.87 mGy.cm HISTORY: Pain. Nausea. Ab pain near stoma (left side abd pain) TECHNIQUE: Multiaxial CT images of the abdomen and pelvis were performed following the use of intravenous and oral contrast. A dose lowering technique was utilized adhering to the principles of ALARA. COMPARISON STUDY: 05/05/2016 FINDINGS: Patient is again noted to be status post complete colectomy. There has been revision with takedown of the right anterior ostomy and placement of a left mid abdominal ostomy. There are no obstructive bowel characteristics. The small bowel pattern is considered unremarkable within limitations of a small amount of oral contrast. Lung bases are clear. Liver spleen and pancreas appear uniform. Kidneys are considered negative for hydronephrosis. There are findings of a midline incision. Bladder is midline. There is no significant abdominal pelvic or inguinal derek pathology. Several small reactive inguinal nodes are present unaltered from the prior study. There is no evidence for abscess or collection. Gallbladder is mildly contracted. IMPRESSION: 1. Interval revision of the patient's ostomy with a interval takedown of the right sided ostomy and placement of a left anterior ostomy. 2. Changes consistent with prior colectomy. 3. No evidence for abscess collection or obstruction. 4. No acute process is noted. Laboratory Results 06/17/17 03:47 Red Blood Count 5.69, Mean Corpuscular Volume 84.4, Mean Corpuscular Hemoglobin 29.7, Mean Corpuscular Hemoglobin Concent 35.2, Mean Platelet Volume 9.7 06/17/17 03:47 Test 06/17/17 03:47 White Blood Count 13.16 K/uL (4.8-10.8) Red Blood Count 5.69 M/uL (4.7-6.1) Hemoglobin 16.9 g/dL (14.0-18.0) Hematocrit 48.0 % (42-52) Mean Corpuscular Volume 84.4 fL (80-100) Mean Corpuscular Hemoglobin 29.7 pg (25-34) Mean Corpuscular Hemoglobin Concent 35.2 g/dl (32-36) Platelet Count 240 K/uL (130-400) Mean Platelet Volume 9.7 fL (7.4-10.4) RDW Standard Deviation 41.4 fL (36.4-46.3) RDW Coefficient of Variation 13.7 % (11.5-14.5) Neutrophils % (Manual) 43.7 % Lymphocytes % (Manual) 41.1 % Variant Lymphocytes % (manual) 12.5 % Monocytes % (Manual) 0.9 % Basophils % (Manual) 0.9 % (0-2) Myelocytes % 0.9 % Neutrophils # (Manual) 5.75 K/uL (1.4-6.5) Total Absolute Neutrophils 5.75 K/uL (1.4-6.5) Lymphocytes # (Manual) 5.41 K/uL (1.2-3.4) Absolute Variant Lymphocytes 1.65 K/uL Total Absolute Lymphocytes 7.05 K/uL (1.2-3.4) Monocytes # (Manual) 0.12 K/uL (0.11-0.59) Basophils # (Manual) 0.12 K/uL (0-0.2) Myelocytes # 0.12 K/uL (0-0) Red Blood Cell Morphology Unremarkable Anion Gap 9.0 mmol/L (3-11) Est Creatinine Clear Calc Drug Dose 142.1 ml/min Estimated GFR () 127.9 Estimated GFR (Non- 110.4 BUN/Creatinine Ratio 6.3 (10-20) Calcium Level 9.4 mg/dl (8.5-10.1) Total Bilirubin 0.6 mg/dl (0.2-1) Aspartate Amino Transf (AST/SGOT) 38 U/L (15-37) Alanine Aminotransferase (ALT/SGPT) 77 U/L (12-78) Alkaline Phosphatase 94 U/L (45-117) Total Protein 8.2 gm/dl (6.4-8.2) Albumin 4.2 gm/dl (3.4-5.0) Globulin 4.0 gm/dl (2.5-4.0) Albumin/Globulin Ratio 1.1 (0.9-2) Lipase 226 U/L (73-393) Chemistry Specimen Hemolysis Date/Time Source Procedure Growth Status 06/17/17 06:00 Stool C.difficile Toxin B Gene (PCR) - Final No C. difficile toxin B gene detected Complete Medications Administered Medications (Trade) Dose Ordered Sig/Teodora Route Start Time Stop Time Status Last Admin Dose Admin Sodium Chloride 1,000 ml @ 999 mls/hr Q1H1M ONCE IV 06/17/17 03:45 06/17/17 04:45 DC 06/17/17 04:09 999 MLS/HR Ondansetron HCl (Zofran Inj) 4 mg NOW STAT IV 06/17/17 03:39 06/17/17 03:41 DC 06/17/17 04:09 4 MG ED Course Physical exam and history were performed. Nursing notes, EMR, and Medication List were personally reviewed. Patient appears to have left-sided abdominal pain for several days. He has had some surgical processes in the past. He initially elected against CT scan as he has had several bees in the past. He is requesting CT imaging today. IV access was established and labs were obtained. The patient was hydrated and medicated as above. CT scan was ordered with contrast. Stool samples were collected. The patient blood work is as above and was reviewed. He does have a very mildly elevated white blood cell count which is similar to several days ago. This does appear chronic. He does not have a gross anemia, bandemia, or significant electrolyte imbalance. Transaminases are nondiagnostic. His other labs are fairly unremarkable. The CAT scan is as above and does not show evidence of surgical process or abscess. The case was discussed with my attending physician, Dr. Ferreira, and overall we feel the patient is stable for discharge home. He does not appear to have acute surgical abdomen or obvious infection. His stool samples are pending, and this may change care depending on the results. The patient should be following with his primary care physician and possibly his surgeon regarding the stoma as this may be the cause of his irritation. The patient was otherwise invited back to the ER with any new, worsening, or concerning symptoms. The chart was completed utilizing [employer] Speech Voice Recognition Software. Grammatical errors, random word insertions, pronoun errors, and incomplete sentences are an occasional consequence of this system due to software limitations, ambient noise, and hardware issues. Any formal questions or concerns about the content, text, or information contained within the body of this dictation should be directly addressed to the provider for clarification. . Medical Decision Differential diagnosis: Etiologies such as appendicitis, diverticulitis, PUD, biliary pathology, UTI, pancreatitis, obstruction, mesenteric ischemia, aortic pathology, infections, inflammatory bowel disease, renal colic, as well as others were entertained. [place] Drug Monitoring Program Search Results: patient reviewed within database Medication Reconcilliation Current Medication List: was personally reviewed by me Blood Pressure Screening Patient's blood pressure: Normal blood pressure Impression Primary Impression: Abdominal pain Departure Information Dispostion Home / Self-Care Condition GOOD Prescriptions No Active Prescriptions or Reported Meds Referrals Farzana Goel (PCP) Forms HOME CARE DOCUMENTATION FORM, IMPORTANT VISIT INFORMATION Patient Instructions My [facility] Additional Instructions You were seen and evaluated today on an emergency basis only. This is not a substitute for, or an effort to provide, complete comprehensive medical care. It is not possible to recognize and treat all injuries or illnesses in a single emergency department visit. For this reason it is recommended that you followup with your primary care physician for ongoing care and evaluation. Drink plenty of fluids and remain well hydrated. You are welcome to return to the emergency department anytime with new, worsening, or concerning symptoms.
--- NOTE | 2017-06-20 18:39 | Pharmacy Progress Note ---
ED Pharmacist Culture FollowUp Date of Service: Jun 20, 2017. After discussing with Dr. 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 I called but was not able to leave a voicemail. I also emailed the patient to call us back.
[2017-06-21] MEDS ORDERED: LEVO1TAB35 PO (01:53)
[2017-06-21] MEDS ORDERED: OXYC1TAB3 PO (01:53)
== END 2017-06-17 07:29 | disposition home or self-care (01) ==
LOC: C.EDB 03:12
DX: R10.9 Unspecified abdominal pain (principal); Z93.2 Ileostomy status; F90.9 Attention-deficit hyperactivity disorder, unspecified type; D66 Hereditary factor VIII deficiency; Z80.9 Family history of malignant neoplasm, unspecified

== ENCOUNTER 2017-07-15 20:33 | Emergency (ER) | payer OTHER ==
[~2017-07-15] VITALS: Ht 170.2 cm; Wt 114.9 kg
[~2017-07-15 20:33] MED LIST changes: -ACET-1256 PO; +LEVO1TAB35 PO; +OXYC1TAB3 PO; -[UNRECOGNIZED DRUG - CODE] IV
[2017-07-15 20:37] VITALS: TEMP 36.8; Ht 170.2 cm; Wt 114.9 kg
--- NOTE | 2017-07-15 20:53 | EMERGENCY ROOM VISIT NOTE ---
History Report prepared by Meseret: Misael Webster Under the Supervision of: Dr. Matty Goldberg M.D. First contact with patient: 20:40 Chief Complaint: OTHER COMPLAINT Stated Complaint: STOMACH PAINS, SEVERE IRRITATION CAUSING BLEEDING History of Present Illness The patient is a 22 year old male who presents to the Emergency Room with complaints of constant abdominal pain beginning a month ago. The patient states that he has an ileostomy bag and notes that the surrounding skin has become inflamed and painful. He reports that he saw his surgeon two weeks ago and was given nystatin powder and a steroid for poison vangie with no relief of his symptoms. The patient states that his pain has been worsening for the last few days prompting his visit to the emergency department today. He notes that his bag is supposed to be changed every 2-3 days but that he has not changed it in the past 4 days. He denies any fever and chills. Source of History: patient Onset: a month ago Position: abdomen, other Timing: constant Associated Symptoms: No fevers, No chills Note: He also complains of inflamed and painful skin surrounding his ileostomy bag. Review of Systems See HPI for pertinent positives and negatives. A total of ten systems were reviewed and were otherwise negative. Past Medical & Surgical Medical Problems: (1) Attention deficit hyperactivity disorder (2) Familial polyposis (3) hemophilia (4) Hypopotassemia (5) Ileostomy Status Surgical Problems: (1) H/O colectomy Family History Cancer Diabetes mellitus Hypertension Social History Smoking Status: Never Smoker Alcohol Use: none Drug Use: none Marital Status: in relationship Housing Status: lives with family Occupation Status: employed Current/Historical Medications Scheduled Acetaminophen (Tylenol), 1,000 MG PO PRN UD Allergies Coded Allergies: NSAIDs (Verified Allergy, Unknown, hemophilia, 06/17/17) Aspirin (Verified Adverse Reaction, Unknown, hemophilia, 06/17/17) Physical Exam Vital Signs Date Time Temp Pulse Resp B/P (MAP) Pulse Ox O2 Delivery O2 Flow Rate FiO2 07/15/17 23:23 72 18 149/82 97 07/15/17 22:26 76 18 134/71 99 Room Air 07/15/17 20:37 36.8 89 16 156/95 98 Room Air Physical Exam GENERAL: Awake, alert, well-appearing, in no distress HENT: Normocephalic, atraumatic. Oropharynx unremarkable. EYES: Normal conjunctiva. Sclera non-icteric. NECK: Supple. No nuchal rigidity. FROM. No JVD. RESPIRATORY: Clear to auscultation. CARDIAC: Regular rate, normal rhythm. Extremities warm and well perfused. Pulses equal. ABDOMEN: Soft, non-distended. No tenderness to palpation. No rebound or guarding. No masses. Mild redness surrounding left abdominal ileostomy bag, no warmth, no purulence, no crepitus. RECTAL: Deferred. MUSCULOSKELETAL: Chest examination reveals no tenderness. The back is symmetrical on inspection without obvious abnormality. There is no CVA tenderness to palpation. No joint edema. LOWER EXTREMITIES: Calves are equal size bilaterally and non-tender. No edema. No discoloration. NEURO: Normal sensorium. No sensory or motor deficits noted. SKIN: No rash or jaundice noted. Medical Decision & Procedures Laboratory Results 07/15/17 21:15 Red Blood Count 5.67, Mean Corpuscular Volume 85.0, Mean Corpuscular Hemoglobin 29.8, Mean Corpuscular Hemoglobin Concent 35.1, Mean Platelet Volume 10.0 07/15/17 21:15 Test 07/15/17 21:15 White Blood Count 12.63 K/uL (4.8-10.8) Red Blood Count 5.67 M/uL (4.7-6.1) Hemoglobin 16.9 g/dL (14.0-18.0) Hematocrit 48.2 % (42-52) Mean Corpuscular Volume 85.0 fL (80-100) Mean Corpuscular Hemoglobin 29.8 pg (25-34) Mean Corpuscular Hemoglobin Concent 35.1 g/dl (32-36) Platelet Count 215 K/uL (130-400) Mean Platelet Volume 10.0 fL (7.4-10.4) RDW Standard Deviation 41.0 fL (36.4-46.3) RDW Coefficient of Variation 13.4 % (11.5-14.5) Neutrophils % (Manual) 48.1 % Lymphocytes % (Manual) 29.5 % Variant Lymphocytes % (manual) 16.1 % Monocytes % (Manual) 5.4 % Metamyelocytes % 0.9 % Neutrophils # (Manual) 6.08 K/uL (1.4-6.5) Total Absolute Neutrophils 6.08 K/uL (1.4-6.5) Lymphocytes # (Manual) 3.73 K/uL (1.2-3.4) Absolute Variant Lymphocytes 2.03 K/uL Total Absolute Lymphocytes 5.76 K/uL (1.2-3.4) Monocytes # (Manual) 0.68 K/uL (0.11-0.59) Metamyelocytes # 0.11 K/uL (0-0) Red Blood Cell Morphology Unremarkable Anion Gap 8.0 mmol/L (3-11) Est Creatinine Clear Calc Drug Dose 133.7 ml/min Estimated GFR () 116.2 Estimated GFR (Non- 100.3 BUN/Creatinine Ratio 5.5 (10-20) Calcium Level 9.8 mg/dl (8.5-10.1) Total Bilirubin 0.6 mg/dl (0.2-1) Direct Bilirubin 0.1 mg/dl (0-0.2) Aspartate Amino Transf (AST/SGOT) 52 U/L (15-37) Alanine Aminotransferase (ALT/SGPT) 96 U/L (12-78) Alkaline Phosphatase 91 U/L (45-117) Total Protein 8.6 gm/dl (6.4-8.2) Albumin 4.5 gm/dl (3.4-5.0) Lipase 321 U/L (73-393) Laboratory results reviewed by me Medications Administered Medications (Trade) Dose Ordered Sig/Teodora Route Start Time Stop Time Status Last Admin Dose Admin Tramadol HCl (Ultram Tab) 50 mg NOW STAT PO 07/15/17 21:04 07/15/17 21:05 DC 07/15/17 21:11 50 MG Tramadol HCl (Ultram Home Pack) 1 homepack UD ONCE PO 07/15/17 23:15 07/15/17 23:16 DC 07/15/17 23:20 1 HOMEPACK ED Course 2042: The patient was evaluated in room A3. A complete history and physical exam was performed. 2103: Tramadol HCl 50mg PO 2117: I spoke to Dr. Tinajero who is special education assistant for Dr. Cadet - [facility]. He feels as though there is no emergent infection due to the bag being placed a year ago. He note that the patient should make an appointment with Dr. Cadet tomorrow. 2243: I reevaluated the patient. Discussed results and discharge instructions: He verbalized understanding and agreement. The patient is ready for discharge. Medical Decision I reviewed the patient's past medical history, medications, and the nursing notes as described above. Differential diagnoses include: cellulitis vs. fungal infection and gastroenteritis. The patient is a 22-year-old gentleman with a past medical history of colonic resection and status post ostomy with takedown and revision in new placement on left 1 year prior to arrival presents for the fourth time to emergency department within 4 weeks for similar pain around his ostomy site per history of present illness. On arrival the patient is well-appearing, in no acute distress, afebrile with stable vital signs. On exam, ostomy site has some mild redness but no warmth or crepitus or purulent discharge. Appears improved compared to prior photos from May which patient has at the bedside. Given multiple unremarkable workups and benign exam I feel emergent processes unlikely. Will check labs to assess for possible early infectious process. Labs with WBC 12, nonspecific and otherwise unremarkable. D/w Dr. Tinajero who is special education assistant for Dr. Cadet (patients surgeon), who agrees that emergent process unlikely and OK for outpatient f/u tomorrow. Findings and plan for follow-up reviewed with patient. Patient agreeable and d/c'd per discharge instructions. Medication Reconcilliation Current Medication List: was personally reviewed by me Blood Pressure Screening Patient's blood pressure: Normal blood pressure Blood pressure disposition: Did not require urgent referral Impression Primary Impression: Complication of ostomy Scribe Attestation The scribe's documentation has been prepared under my direction and personally reviewed by me in its entirety. I confirm that the note above accurately reflects all work, treatment, procedures, and medical decision making performed by me. Departure Information Dispostion Home / Self-Care Referrals Farzana Goel (PCP) Patient Instructions My [facility] Additional Instructions Please follow up with your surgeon, Dr. Cadet, for re-evaluation tomorrow. Continue your Nystatin as directed by your surgeon. Otherwise, your exam and lab results did not show signs of an emergent condition at this time. Return to the emergency department for worsening symptoms as described in the accompanying instructions.
[2017-07-15] MEDS ORDERED: ACET-1256 PO (21:00)
[2017-07-15] MEDS ORDERED: TRAMADOL HCL 50 MG TAB PO STA (21:04)
[2017-07-15 21:30] LABS: HEMATOCRIT 48.2 % (42-52); MEAN CORPUSCULAR HEMOGLOBIN 29.8 pg (25-34); MEAN CORPUSCULAR HGB CONC 35.1 g/dl (32-36); PLATELET COUNT 215 K/uL (130-400); RED BLOOD COUNT 5.67 M/uL (4.7-6.1); WHITE BLOOD COUNT 12.63 K/uL (4.8-10.8)
[2017-07-15 21:57] LABS: BUN/CREATININE RATIO 5.5 (10-20); CALCIUM 9.8 mg/dl (8.5-10.1); CREATININE 1.05 mg/dl (0.60-1.40)
[2017-07-15 22:04] LABS: POTASSIUM 3.6 mmol/L (3.5-5.1)
[2017-07-15 22:43] LABS: COMPLETE YES; LYMPH ABS # 3.73 K/uL (1.2-3.4); LYMPHOCYTE % 29.5 %; META ABS # 0.11 K/uL (0-0); METAMYELOCYTE % 0.9 %; NEUTROPHILS % 48.1 %; VARIANT LYM ABS # 2.03 K/uL; VARIANT LYMPHOCYTE % 16.1 %
[2017-07-15] MEDS ORDERED: TRAMADOL HCL 50 MG HOME PACK PO ONE (23:15)
[2017-07-15 23:23] VITALS: BP 149/82; PULSE 72; O2SAT 97
== END 2017-07-15 23:26 | disposition home or self-care (01) ==
LOC: C.EDB 20:35 → C.EDA 23:26
DX: K94.19 Other complications of enterostomy (principal); F90.9 Attention-deficit hyperactivity disorder, unspecified type; D66 Hereditary factor VIII deficiency; Z90.49 Acquired absence of other specified parts of digestive tract; Z80.9 Family history of malignant neoplasm, unspecified; Z83.3 Family history of diabetes mellitus; Z82.49 Family history of ischemic heart disease and other diseases of the circulatory system

== ENCOUNTER → 2017-09-05 | Outpatient (CLI) | payer OTHER ==
[~2017-09-05] MED LIST changes: +ACET-1256 PO; -LEVO1TAB35 PO; -OXYC1TAB3 PO
--- NOTE | 2017-09-05 13:14 | DIAGNOSTIC IMAGING REPORT ---
ULTRASOUND OF THE THYROID GLAND CLINICAL HISTORY: Thyroid nodules. COMPARISON STUDY: Thyroid ultrasound dated 09/12/2016. TECHNIQUE: Real-time, grayscale, and color flow sonography of the thyroid gland is performed utilizing a high-frequency linear transducer. Images are reviewed in the transverse and longitudinal planes. FINDINGS: Right lobe: The right lobe of the thyroid gland is normal in size and homogeneous in echotexture, measuring 5.2 x 1.6 x 1.6 cm. A 2 mm hypoechoic nodule is incidentally noted. Left lobe: The left lobe of the thyroid gland is normal in size and homogeneous in echotexture, measuring 4.8 x 1.4 x 1.6 cm. A honeycomb nodule in the anterior midpole measures 0.8 x 0.4 x 0.7 cm (previously measured 0.8 x 0.3 x 0.6 cm). Isthmus: The thyroid isthmus appears mildly thickened measuring 0.7 cm in AP diameter. IMPRESSION: 1. The thyroid gland is normal in size and homogeneous in echotexture. 2. A low suspicion subcentimeter nodule in the left lobe is unchanged. Electronically signed by: Prieto Valdes M.D. 09/05/2017 1:13 PM Dictated Date/Time: 09/05/2017 1:12 PM
== END | disposition home or self-care (01) ==
LOC: C.ULTR 12:27
PROVIDERS: ATTEND Nurse Practitioner Family
DX: E04.2 Nontoxic multinodular goiter (principal)

== ENCOUNTER 2017-09-30 22:52 | Emergency (ER) | payer OTHER ==
[~2017-09-30] VITALS: Ht 175.3 cm; Wt 102.4 kg
[2017-09-30 23:05] VITALS: TEMP 36.8; Ht 175.3 cm; Wt 102.4 kg
--- NOTE | 2017-09-30 23:38 | EMERGENCY ROOM VISIT NOTE ---
History Report prepared by Meseret: Juliana Corona Under the Supervision of: Dr. Nadine Ferreira D.O. First contact with patient: 23:35 Chief Complaint: ABDOMINAL PAIN Stated Complaint: SEVERE PAIN AND SWELLING ABDOMINAL-S/P SURGERY Nursing Triage Summary: pt reports he had surgery for ostomy revision yesterday at [facility], discharged today at 3pm. states "my pain was moderate, but now it's worse." pt states he had nausea/vomiting while at [facility]. denies urinary symptoms. liquid brown stool noted in ostomy bag. noted IV in right wrist, pt states "they leave it in , i'm a hemophiliac. they said my levels were okay." pt alert and oriented x4. abdomen noted to have multiple scars, bowel sounds WNL. History of Present Illness The patient is a 22 year old male who presents to the Emergency Room with complaints of persistent abdominal pain that started a few hours ago. The patient rates his pain a 7/10 in severity. He had an ostomy revision yesterday at [facility]. The patient has hemophilia. He notes they are checking his factor levels and they were high. He reports he was discharged from the hospital post-op today around 3pm. He states his abdomen is swollen and he is unable to get comfortable due to his pain. He notes they prescribed him with 5mg of Oxycodone. He reports he has been passing gas. The patient denies any nausea, chest pain, or trouble breathing. His girlfriend thinks he felt warm earlier and was having chills. Source of History: patient Onset: a few hours ago Position: abdomen Symptom Intensity: 7/10 Timing: other (persistent) Associated Symptoms: + chills, No chest pain, No SOB, No nausea Review of Systems See HPI for pertinent positives & negatives. A total of 10 systems reviewed and were otherwise negative. Past Medical & Surgical Medical Problems: (1) Attention deficit hyperactivity disorder (2) Familial polyposis (3) hemophilia (4) Hypopotassemia (5) Ileostomy Status Surgical Problems: (1) H/O colectomy Family History Cancer Diabetes mellitus Hypertension Social History Smoking Status: Current Some Day Smoker Alcohol Use: none Drug Use: none Marital Status: in relationship Housing Status: lives with family Occupation Status: employed Current/Historical Medications Scheduled Acetaminophen (Tylenol), 1,000 MG PO PRN UD Scheduled PRN Oxycodone/Acetaminophen 5MG/325MG (Percocet 5MG/325MG), 1-2 TABLETS PO DIRECTED PRN for Pain Allergies Coded Allergies: NSAIDs (Verified Allergy, Unknown, hemophilia, 09/30/17) Aspirin (Verified Adverse Reaction, Unknown, hemophilia, 09/30/17) Physical Exam Vital Signs Date Time Temp Pulse Resp B/P (MAP) Pulse Ox O2 Delivery O2 Flow Rate FiO2 10/01/17 03:11 93 18 136/94 95 10/01/17 02:10 97 18 146/80 98 Room Air 10/01/17 01:10 84 18 148/80 95 Room Air 10/01/17 00:01 93 18 143/94 94 Room Air 96 149/104 89 135/87 09/30/17 23:05 36.8 98 20 158/97 95 Room Air Physical Exam GENERAL: alert, well appearing, well nourished, no distress, non-toxic EYE EXAM: normal conjunctiva, PERRL and EOM's grossly intact OROPHARYNX: no exudate, no erythema, lips, buccal mucosa, and tongue normal and mildly dry mucous membranes NECK: supple, no nuchal rigidity, no adenopathy, non-tender LUNGS: Clear to auscultation. Normal chest wall mechanics, no w/r/r HEART: no murmurs, S1 normal and S2 normal ABDOMEN: Mild abdominal tenderness in area around stoma, multiple well healed surgical scars, stoma to left of midline, pink and viable appearing intestine noted at stoma sight, no obvious bleeding, liquid brown stool in patient's bag, no surrounding erythema, no ecchymosis BACK: Back is symmetrical on inspection and there is no deformity, no midline tenderness, no CVA tenderness. SKIN: no rashes and no bruising UPPER EXTREMITIES: upper extremities are grossly normal. Nml ROM, Nml pulses. LOWER EXTREMITIES: No pitting edema. Nml ROM, nml pulses. Medical Decision & Procedures ER Provider Diagnostic Interpretation: Radiology results have been interpreted by the radiologist and reviewed by me. CT ABDOMEN & PELVIS with Contrast: Comparison on 06/17/17. Left-sided ostomy. Subcutaneous infiltration and emphysema in the left ventral body wall. Nonspecific particularly if there has been recent procedure. Cellulitis not excluded. No bowel obstruction. Questionable wall thickening of bowel extending out ostomy defect versus incomplete distention. Lack of enteric contrast limits evaluation. Splenomegaly. Liver is also prominent size with possible steatosis. Atelectasis lung bases. Laboratory Results 10/01/17 00:05 Red Blood Count 5.04, Mean Corpuscular Volume 85.3, Mean Corpuscular Hemoglobin 29.6, Mean Corpuscular Hemoglobin Concent 34.7, Mean Platelet Volume 9.7, Neutrophils (%) (Auto) 65.0, Lymphocytes (%) (Auto) 24.1, Monocytes (%) (Auto) 10.1, Eosinophils (%) (Auto) 0.4, Basophils (%) (Auto) 0.1, Neutrophils # (Auto ) 8.54, Lymphocytes # (Auto) 3.17, Monocytes # (Auto) 1.33, Eosinophils # (Auto ) 0.05, Basophils # (Auto) 0.01 10/01/17 00:05 Test 10/01/17 00:05 White Blood Count 13.14 K/uL (4.8-10.8) Red Blood Count 5.04 M/uL (4.7-6.1) Hemoglobin 14.9 g/dL (14.0-18.0) Hematocrit 43.0 % (42-52) Mean Corpuscular Volume 85.3 fL (80-100) Mean Corpuscular Hemoglobin 29.6 pg (25-34) Mean Corpuscular Hemoglobin Concent 34.7 g/dl (32-36) Platelet Count 176 K/uL (130-400) Mean Platelet Volume 9.7 fL (7.4-10.4) Neutrophils (%) (Auto) 65.0 % Lymphocytes (%) (Auto) 24.1 % Monocytes (%) (Auto) 10.1 % Eosinophils (%) (Auto) 0.4 % Basophils (%) (Auto) 0.1 % Neutrophils # (Auto) 8.54 K/uL (1.4-6.5) Lymphocytes # (Auto) 3.17 K/uL (1.2-3.4) Monocytes # (Auto) 1.33 K/uL (0.11-0.59) Eosinophils # (Auto) 0.05 K/uL (0-0.5) Basophils # (Auto) 0.01 K/uL (0-0.2) RDW Standard Deviation 43.4 fL (36.4-46.3) RDW Coefficient of Variation 14.1 % (11.5-14.5) Immature Granulocyte % (Auto) 0.3 % Immature Granulocyte # (Auto) 0.04 K/uL (0.00-0.02) Anion Gap 7.0 mmol/L (3-11) Est Creatinine Clear Calc Drug Dose 158.9 ml/min Estimated GFR () 142.7 Estimated GFR (Non- 123.1 BUN/Creatinine Ratio 7.6 (10-20) Calcium Level 9.1 mg/dl (8.5-10.1) Total Bilirubin 0.9 mg/dl (0.2-1) Aspartate Amino Transf (AST/SGOT) 20 U/L (15-37) Alanine Aminotransferase (ALT/SGPT) 58 U/L (12-78) Alkaline Phosphatase 66 U/L (45-117) Total Protein 7.2 gm/dl (6.4-8.2) Albumin 3.7 gm/dl (3.4-5.0) Globulin 3.5 gm/dl (2.5-4.0) Albumin/Globulin Ratio 1.1 (0.9-2) Laboratory results per my review. Medications Administered Medications (Trade) Dose Ordered Sig/Teodora Route Start Time Stop Time Status Last Admin Dose Admin Fentanyl Citrate (Fentanyl Inj) 100 mcg Q1H PRN IV 10/01/17 00:00 10/01/17 03:48 DC 10/01/17 00:15 100 MCG Ondansetron HCl (Zofran Inj) 4 mg NOW STAT IV 09/30/17 23:49 09/30/17 23:51 DC 10/01/17 00:14 4 MG Sodium Chloride 500 ml @ 999 mls/hr Q31M STAT IV 09/30/17 23:49 10/01/17 00:19 DC 10/01/17 00:05 999 MLS/HR Oxycodone HCl (Roxicodone Immediate Rel Tab) 5 mg NOW STAT PO 10/01/17 02:54 10/01/17 02:55 DC 10/01/17 03:09 5 MG ED Course 2335: The patient was evaluated in room B5. A complete history and physical exam was performed. 2349: Sodium Chloride 500 ml @ 999 mls/hr IV, Zofran Inj 4 mg IV. 0000: Fentanyl Inj 100 mcg IV. 0125: Records were received from [facility] and were reviewed by me. 0243: I spoke with [place]. There is no hemoperitoneum, no evidence or blood collections, no active extravasation. 0246: I updated the patient and discussed results with him. He has no current pain and is comfortable going home. The patient is ready for discharge. 0254: Oxycodone HCl 5 mg PO. Medical Decision Differential diagnosis: Etiologies such as appendicitis, diverticulitis, PUD, biliary pathology, UTI, pancreatitis, obstruction, mesenteric ischemia, aortic pathology, infections, inflammatory bowel disease, renal colic, as well as others were entertained. Pt well appearing despite complaints. Labs with stable H/H and stable mild leukocytosis compared to prior. CT reassuring. Faxed reports from recent surgery at [facility] reviewed. Pt with improved pain here, no vomiting, no fevers. Discussed with pt f/u with his surgeon, continued care of his stoma, hydration, sx to watch/return for, he verbalized understanding and was agreeable with plan. I do not suspect perf, anastomotic leak, abscess, bacteremia/sepsis, persistent bleeding in setting of pt's hemophilia, Pt had already been given instruction by his skein drier at discharge regarding continued dosing of his factor at home. Medication Reconcilliation Current Medication List: was personally reviewed by me Blood Pressure Screening Patient's blood pressure: Elevated blood pressure Blood pressure disposition: Referred to PCP Impression Primary Impression: Abdominal pain Additional Impression: Ileostomy Status Scribe Attestation The scribe's documentation has been prepared under my direction and personally reviewed by me in its entirety. I confirm that the note above accurately reflects all work, treatment, procedures, and medical decision making performed by me. Departure Information Dispostion Home / Self-Care Referrals Farzana Goel (PCP) Patient Instructions My [facility] Additional Instructions Please follow your post op discharge instructions you were previously given. Please continue your medications as prescribed. You may use the pain medications as prescribed. Please continue to monitor your stoma and output for any changes. Please call and follow-up with your surgeon. Continue the recommended administration of factor as instructed by your skein drier. If you have any worsening pain, notice a change in your output or see blood, develop fevers, vomiting, or you have any other new or concerning symptoms, please return to the emergency room. Problem Qualifiers Primary Impression: Abdominal pain Abdominal location: unspecified location Qualified Codes: R10.9 - Unspecified abdominal pain
[2017-09-30] MEDS ORDERED: ONDANSETRON INJ 2 MG/ML 2 ML VIAL IV STA (23:49)
[2017-09-30] MEDS ORDERED: SODIUM CHLORIDE 0.9% 500ML 500 ML IV STA (23:49)
[2017-09-30] MEDS ORDERED: OXYC-57 PO (23:53)
[2017-10-01] MEDS ORDERED: OPTIRAY 320 IV PRN
[2017-10-01] MEDS ORDERED: FENTANYL CITRATE INJ 50 MCG/1 ML 2 ML VIAL IV PRN
[2017-10-01 00:13] LABS: BASO % 0.1 %; BASO ABS # 0.01 K/uL (0-0.2); EOS % 0.4 %; EOS ABS # 0.05 K/uL (0-0.5); HEMOGLOBIN 14.9 g/dL (14.0-18.0); IG# 0.04 K/uL (0.00-0.02); LYMPH % 24.1 %; LYMPH ABS # 3.17 K/uL (1.2-3.4); MEAN CELL VOLUME 85.3 fL (80-100); MEAN CORPUSCULAR HEMOGLOBIN 29.6 pg (25-34); MEAN CORPUSCULAR HGB CONC 34.7 g/dl (32-36); MEAN PLATELET VOLUME 9.7 fL (7.4-10.4); MONO % 10.1 %; MONO ABS # 1.33 K/uL (0.11-0.59); NEUT ABS # 8.54 K/uL (1.4-6.5); PLATELET COUNT 176 K/uL (130-400); RED CELL DISTRIBUTION WIDTH CV 14.1 % (11.5-14.5); RED CELL DISTRIBUTION WIDTH SD 43.4 fL (36.4-46.3); WHITE BLOOD COUNT 13.14 K/uL (4.8-10.8)
[2017-10-01 00:35] LABS: ALBUMIN 3.7 gm/dl (3.4-5.0); CALCIUM 9.1 mg/dl (8.5-10.1); CREATININE 0.86 mg/dl (0.60-1.40); POTASSIUM 3.3 mmol/L (3.5-5.1)
[2017-10-01 00:38] LABS: TOTAL PROTEIN 7.2 gm/dl (6.4-8.2)
[2017-10-01] MEDS ORDERED: OXYCODONE HCL IR 5 MG TAB (IMMEDIATE RELEASE) PO STA (02:54)
[2017-10-01 03:11] VITALS: BP 136/94; PULSE 93; O2SAT 95
--- NOTE | 2017-10-01 06:50 | DIAGNOSTIC IMAGING REPORT ---
CT ABD/PELVIS IV CONTRAST ONLY CLINICAL HISTORY: Increasing abdominal pain. History of ileostomy revision. Hemophilia. COMPARISON STUDY: 06/17/2017 TECHNIQUE: Following the IV administration of 93 mL of Optiray-320, CT scan of the abdomen and pelvis was performed from the lung bases to the proximal femurs. Images are reviewed in the axial, sagittal, and coronal planes. IV contrast was administered without complication. A dose lowering technique was utilized adhering to the principles of ALARA. CT DOSE: 1107.43 mGy.cm FINDINGS: Lower chest: There are minor dependent atelectatic changes. Liver: There is mild hepatic steatosis. No focal masses are visualized. Gallbladder: Unremarkable. Spleen: The spleen remains mildly enlarged measuring 13 cm Pancreas: Unremarkable. Adrenal glands: Unremarkable. Kidneys: There is symmetric renal cortical enhancement. The kidneys are normal in size without hydronephrosis. Bowel: There are postsurgical changes of a prior colectomy. There is a left lower quadrant ileostomy. There are several mildly prominent fluid-filled small bowel loops containing air-fluid levels. A discrete transition zone is not delineated. Lack of enteric contents limits bowel evaluation. There is infiltration of the fat surrounding the ileostomy, likely secondary to recent surgery. There is a small air bubble within the soft tissues, also likely postsurgical. Peritoneum: There is no intraperitoneal free air or abdominal ascites. Vasculature: The abdominal aorta is normal in course and caliber. Adenopathy: None. Pelvic viscera: The bladder, and pelvic viscera are unremarkable. Skeletal structures: No destructive osseous lesions are seen. IMPRESSION: 1. Postsurgical changes of a prior colectomy 2. Left lower quadrant ileostomy. Infiltration of the fat at the level of the ileostomy with subcutaneous gas, likely secondary to recent surgery. 3. Several mildly prominent fluid-filled small bowel loops, but no current evidence of a high-grade bowel obstruction 4. Hepatic steatosis 5. Mild splenomegaly Electronically signed by: Dick Morel M.D. 10/01/2017 6:48 AM Dictated Date/Time: 10/01/2017 6:43 AM
== END 2017-10-01 03:11 | disposition home or self-care (01) ==
LOC: C.EDB 22:54
DX: R10.9 Unspecified abdominal pain (principal); Z93.2 Ileostomy status; D66 Hereditary factor VIII deficiency; D12.6 Benign neoplasm of colon, unspecified; E87.6 Hypokalemia; F17.200 Nicotine dependence, unspecified, uncomplicated; Z83.3 Family history of diabetes mellitus; Z82.49 Family history of ischemic heart disease and other diseases of the circulatory system

== ENCOUNTER 2017-10-02 11:46 | Emergency (ER) | payer OTHER ==
[~2017-10-02] VITALS: Ht 175.3 cm; Wt 98.5 kg
[~2017-10-02 11:46] MED LIST changes: +OXYC-57 PO
[2017-10-02 11:55] VITALS: BP 143/82; PULSE 85; TEMP 36.7; O2SAT 97; Ht 175.3 cm; Wt 98.5 kg
--- NOTE | 2017-10-02 19:17 | EMERGENCY ROOM VISIT NOTE ---
ED Visit Note First contact with patient: 12:05 Chief Complaint: IV request. History of Present Illness: Mr. Carpenter is a 22-year-old white male who ambulates into the ED accompanied by female friend requesting the start of a peripheral IV. Historically patient reports he is a hemophiliac; he takes factor VIII. He goes on to report last week he had surgery for revision in his colon. He was placed on daily factor VIII infusions. He reports today when he attempted to take his factor VIII the IV infiltrated. Currently he reports he is feeling well and is having no complications from his hemophilia or surgery. He just reports that he needs his IV restarted so he can take his factor VIII today. Review of Systems: As noted above in history of present illness. Past Medical History: (1) Attention deficit hyperactivity disorder (2) Familial polyposis (3) hemophilia (4) Hypopotassemia (5) Ileostomy Status Surgical Problems: (1) H/O colectomy Current Medications: Medications Dose Route/Sig Max Daily Dose Days Date Category Dose Instructions Percocet 5MG/325MG (Oxycodone/Acetaminophen) Tab 1-2 Tablets PO DIRECTED PRN 09/30/17 Reported PAIN Tylenol (Acetaminophen) 500 Mg Tab 1,000 Mg PO PRN UD 07/15/17 Reported Allergies to Medications: Aspirin, NSAIDs. Social History: Patient is not employed; he feels safe in his home environment; he denies tobacco use. Physical Examination: Vital Signs: Date Time Temp Pulse Resp B/P (MAP) Pulse Ox O2 Delivery O2 Flow Rate FiO2 10/02/17 11:55 36.7 85 20 143/82 97 Room Air GENERAL: 22-year-old male in no acute distress, nontoxic-appearing, afebrile and hemodynamically stable. NEUROLOGICAL: Awake, alert and oriented to person, place and time. Answering questions appropriately and following commands. Normal gait. ED Course: Patient is assessed as noted above. Patient's medication list was reviewed. Nursing personnel inserted a peripheral IV in his right anterior forearm. Patient was educated about the days visit. Clinical Impression: Peripheral IV insertion. Disposition: Patient discharged home in stable condition accompanied by a female friend. Plan: Patient was encouraged to continue his factor 8 infusions as prescribed. Patient was encouraged to return the ED for any concerning symptoms.
== END 2017-10-02 12:24 | disposition home or self-care (01) ==
LOC: C.EDB 11:49 → C.EDD 12:24
DX: T82.898A Other specified complication of vascular prosthetic devices, implants and grafts, initial encounter (principal); Y84.8 Other medical procedures as the cause of abnormal reaction of the patient, or of later complication, without mention of misadventure at the time of the procedure; D66 Hereditary factor VIII deficiency; F90.9 Attention-deficit hyperactivity disorder, unspecified type; Z98.890 Other specified postprocedural states; Z88.6 Allergy status to analgesic agent

== ENCOUNTER 2017-10-05 16:05 | Emergency (ER) | payer OTHER ==
[~2017-10-05] VITALS: Ht 170.2 cm; Wt 115.0 kg
[2017-10-05 16:39] VITALS: Ht 170.2 cm; Wt 115.0 kg
--- NOTE | 2017-10-05 17:19 | EMERGENCY ROOM VISIT NOTE ---
History First contact with patient: 16:43 Chief Complaint: NEED IV START Stated Complaint: HAD SURGERY AND HAVE HEMOPHILLIA, NEED NEW IV History of Present Illness The patient is a 22 year old male who presents to the Emergency Room requesting IV placement. The patient states that he is a hemophiliac and had recent surgery. He had an ileostomy revision. He states he has been giving himself Factor VIII daily. He had an IV placed here but states that it "blew" yesterday and he removed it. He states he has been healing well from the surgery. He denies any complaints. Review of Systems A complete 6 point review of systems was reviewed with the patient with pertinent positives and negatives as per history of present illness. All else were negative. Past Medical/Surgical History Medical Problems: (1) Attention deficit hyperactivity disorder (2) Familial polyposis (3) hemophilia (4) Hypopotassemia (5) Ileostomy Status Surgical Problems: (1) H/O colectomy Family History Cancer Diabetes mellitus Hypertension Social History Smoking Status: Former Smoker Alcohol Use: none Drug Use: none Marital Status: in relationship Housing Status: lives with family Occupation Status: employed Current/Historical Medications Scheduled Acetaminophen (Tylenol), 1,000 MG PO PRN UD Scheduled PRN Oxycodone/Acetaminophen 5MG/325MG (Percocet 5MG/325MG), 1-2 TABLETS PO DIRECTED PRN for Pain Physical Exam Vital Signs Date Time Temp Pulse Resp B/P (MAP) Pulse Ox O2 Delivery O2 Flow Rate FiO2 10/05/17 17:23 36.9 84 17 130/86 99 10/05/17 16:39 36.9 84 17 130/86 99 Room Air Physical Exam VITALS: Vitals are noted on the nurse's note and reviewed by myself. Vital signs stable. GENERAL: This is a 22-year-old male, in no acute distress, well-developed well- nourished. ABDOMEN: Well-appearing ileostomy in the left lower quadrant. NEURO: Patient was alert and oriented to person place and time. Medical Decision & Procedures Medical Decision The patient was evaluated as above. He presents requesting IV placement. A peripheral IV was placed with no issues. The patient will follow up with his primary care provider as needed. He verbalized understanding of my assessment and treatment plan was discharged home in good condition. Medication Reconcilliation Current Medication List: was personally reviewed by me Blood Pressure Screening Patient's blood pressure: Normal blood pressure Impression Primary Impression: Encounter for intravenous line placement Departure Information Dispostion Home / Self-Care Condition GOOD Referrals Farzana Geol (PCP) Patient Instructions My [facility] Additional Instructions Follow-up with your primary care provider as needed.
[2017-10-05 17:23] VITALS: BP 130/86; PULSE 84; TEMP 36.9; O2SAT 99
== END 2017-10-05 17:23 | disposition home or self-care (01) ==
LOC: C.EDB 16:07 → C.EDD 17:23
DX: T82.898A Other specified complication of vascular prosthetic devices, implants and grafts, initial encounter (principal); Y84.8 Other medical procedures as the cause of abnormal reaction of the patient, or of later complication, without mention of misadventure at the time of the procedure; D66 Hereditary factor VIII deficiency; F90.9 Attention-deficit hyperactivity disorder, unspecified type; D12.6 Benign neoplasm of colon, unspecified; Z87.891 Personal history of nicotine dependence; Z90.49 Acquired absence of other specified parts of digestive tract; Z93.2 Ileostomy status; Z80.9 Family history of malignant neoplasm, unspecified; Z83.3 Family history of diabetes mellitus; Z82.49 Family history of ischemic heart disease and other diseases of the circulatory system

== ENCOUNTER 2017-10-06 20:27 | Emergency (ER) | payer OTHER ==
[~2017-10-06] VITALS: Ht 175.3 cm; Wt 101.5 kg
[2017-10-06 20:48] VITALS: Ht 175.3 cm; Wt 101.5 kg
[2017-10-06] MEDS ORDERED: MoRPHine SULFATE 4 MG/ML 1 ML CARP\\VIAL IV STA (22:45)
[2017-10-06] MEDS ORDERED: ONDANSETRON INJ 2 MG/ML 2 ML VIAL IV STA (22:45)
[2017-10-06 23:25] LABS: BASO % 0.2 %; BASO ABS # 0.02 K/uL (0-0.2); EOS % 1.2 %; EOS ABS # 0.13 K/uL (0-0.5); HEMATOCRIT 45.1 % (42-52); HEMOGLOBIN 15.9 g/dL (14.0-18.0); IG# 0.04 K/uL (0.00-0.02); LYMPH % 33.2 %; LYMPH ABS # 3.75 K/uL (1.2-3.4); MEAN CELL VOLUME 83.4 fL (80-100); MEAN CORPUSCULAR HEMOGLOBIN 29.4 pg (25-34); MEAN CORPUSCULAR HGB CONC 35.3 g/dl (32-36); MEAN PLATELET VOLUME 9.3 fL (7.4-10.4); MONO % 7.3 %; MONO ABS # 0.82 K/uL (0.11-0.59); NEUT % 57.7 %; NEUT ABS # 6.53 K/uL (1.4-6.5); PLATELET COUNT 243 K/uL (130-400); RED CELL DISTRIBUTION WIDTH CV 13.5 % (11.5-14.5); RED CELL DISTRIBUTION WIDTH SD 41.1 fL (36.4-46.3); WHITE BLOOD COUNT 11.29 K/uL (4.8-10.8)
[2017-10-06 23:45] LABS: CREATININE 0.85 mg/dl (0.60-1.40); POTASSIUM 3.9 mmol/L (3.5-5.1)
[2017-10-07] MEDS ORDERED: MoRPHine SULFATE 4 MG/ML 1 ML CARP\\VIAL IV STA (01:06)
[2017-10-07 01:20] VITALS: BP 149/90; PULSE 87; TEMP 37; O2SAT 98
--- NOTE | 2017-10-07 05:29 | EMERGENCY ROOM VISIT NOTE ---
History First contact with patient: 22:38 Chief Complaint: INFECTION Stated Complaint: HAS SURGERY AREA IS INFECTED Nursing Triage Summary: pt concerned from infection in illestomy. had revision surgery on the at [place]. pt states "it's puffy, like hard." pt alert and oriented x4, breathing WNL. History of Present Illness The patient is a 22 year old male who presents to the Emergency Room with complaints of pain and redness around ileostomy site. Patient states he had another ileostomy surgery on September 29. He follows with surgery in [place]. He has a follow-up appointment on the . Patient states he seems to be allergic to a lot of the adhesives. He states he is concerned the ostomy site might be infected. He states around the stoma site it is more red and painful for him. He describes pain as throbbing, ranging in severity 6 out of 10 worse with palpation and better with rest. It does not radiate patient denies chest pain, dyspnea, fever, chills, nausea, vomiting, increased stool production, blood or black in the stool. Review of Systems An 10 system review of systems was completed with positives and pertinent negatives listed in the HPI. Past Medical/Surgical History Medical Problems: (1) Attention deficit hyperactivity disorder (2) Familial polyposis (3) hemophilia (4) Hypopotassemia (5) Ileostomy Status Surgical Problems: (1) H/O colectomy Family History Cancer Diabetes mellitus Hypertension Social History Smoking Status: Never Smoker Alcohol Use: none Drug Use: none Marital Status: in relationship Housing Status: lives with family Occupation Status: employed Current/Historical Medications Scheduled Acetaminophen (Tylenol), 1,000 MG PO PRN UD Scheduled PRN Oxycodone/Acetaminophen 5MG/325MG (Percocet 5MG/325MG), 1-2 TABLETS PO DIRECTED PRN for Pain Physical Exam Vital Signs Date Time Temp Pulse Resp B/P (MAP) Pulse Ox O2 Delivery O2 Flow Rate FiO2 10/07/17 01:20 37.0 87 17 149/90 98 10/07/17 01:15 87 17 149/90 98 Room Air 10/06/17 23:48 80 162/94 96 10/06/17 20:48 37.0 92 18 139/93 99 Room Air Physical Exam VITALS: Vitals are noted on the nurse's note and reviewed by myself. Vital signs stable. GENERAL: Pleasant male, in no acute distress, nondiaphoretic, well-developed well-nourished. SKIN: Capillary reflex less than 2 seconds. HEENT: Normocephalic. PERRLA. EOMI. Nares patent. Mucous membranes moist. Neck is supple without nuchal rigidity. HEART: Regular rate and rhythm without murmurs gallops or rubs. LUNGS: Clear to auscultation bilaterally without wheezes, rales or rhonchi. No retractions or accessory muscle use. ABDOMEN: Positive bowel sounds x 4. Normal tympanic percussion. Soft, left lower quadrant with ostomy site present actively producing stool with stoma pinkish red in color with slightly reddened areas around the adhesive sites that are minimally tender to palpation with no palpable masses, no lymphangitis , Without masses or organomegaly. Santnaa sign negative. No guarding or rebound tenderness. No CVA tenderness MUSCULOSKELETAL: No gross musculoskeletal defects. No pedal edema. No calf tenderness. NEURO: Patient was alert and oriented to person place and time. Normal sensation to light and sharp touch. No focal neurological deficits. Medical Decision & Procedures Laboratory Results 10/06/17 23:10 Red Blood Count 5.41, Mean Corpuscular Volume 83.4, Mean Corpuscular Hemoglobin 29.4, Mean Corpuscular Hemoglobin Concent 35.3, Mean Platelet Volume 9.3, Neutrophils (%) (Auto) 57.7, Lymphocytes (%) (Auto) 33.2, Monocytes (%) (Auto) 7.3, Eosinophils (%) (Auto) 1.2, Basophils (%) (Auto) 0.2, Neutrophils # (Auto) 6.53, Lymphocytes # (Auto) 3.75, Monocytes # (Auto) 0.82, Eosinophils # (Auto) 0.13, Basophils # (Auto) 0.02 10/06/17 23:10 Test 10/06/17 23:10 White Blood Count 11.29 K/uL (4.8-10.8) Red Blood Count 5.41 M/uL (4.7-6.1) Hemoglobin 15.9 g/dL (14.0-18.0) Hematocrit 45.1 % (42-52) Mean Corpuscular Volume 83.4 fL (80-100) Mean Corpuscular Hemoglobin 29.4 pg (25-34) Mean Corpuscular Hemoglobin Concent 35.3 g/dl (32-36) Platelet Count 243 K/uL (130-400) Mean Platelet Volume 9.3 fL (7.4-10.4) Neutrophils (%) (Auto) 57.7 % Lymphocytes (%) (Auto) 33.2 % Monocytes (%) (Auto) 7.3 % Eosinophils (%) (Auto) 1.2 % Basophils (%) (Auto) 0.2 % Neutrophils # (Auto) 6.53 K/uL (1.4-6.5) Lymphocytes # (Auto) 3.75 K/uL (1.2-3.4) Monocytes # (Auto) 0.82 K/uL (0.11-0.59) Eosinophils # (Auto) 0.13 K/uL (0-0.5) Basophils # (Auto) 0.02 K/uL (0-0.2) RDW Standard Deviation 41.1 fL (36.4-46.3) RDW Coefficient of Variation 13.5 % (11.5-14.5) Immature Granulocyte % (Auto) 0.4 % Immature Granulocyte # (Auto) 0.04 K/uL (0.00-0.02) Anion Gap 8.0 mmol/L (3-11) Est Creatinine Clear Calc Drug Dose 160.1 ml/min Estimated GFR () 143.4 Estimated GFR (Non- 123.7 BUN/Creatinine Ratio 13.1 (10-20) Calcium Level 10.0 mg/dl (8.5-10.1) Chemistry Specimen Hemolysis Medications Administered Medications (Trade) Dose Ordered Sig/Teodora Route Start Time Stop Time Status Last Admin Dose Admin Morphine Sulfate (MoRPHine SULFATE INJ) 4 mg NOW STAT IV 10/06/17 22:45 10/06/17 22:47 DC 10/06/17 23:09 4 MG Ondansetron HCl (Zofran Inj) 4 mg NOW STAT IV 10/06/17 22:45 10/06/17 22:47 DC 10/06/17 23:09 4 MG Morphine Sulfate (MoRPHine SULFATE INJ) 4 mg NOW STAT IV 10/07/17 01:06 10/07/17 01:08 DC 10/07/17 01:06 4 MG ED Course Prior records/ancillary studies reviewed. Triage Nursing notes reviewed. Additional history obtained from family The patient's history was concerning for abdominal pain around ileostomy site. Differential diagnosis: Etiologies such as reaction to the adhesives, cellulitis, abscess,diverticulitis , obstruction, mesenteric ischemia, infections, inflammatory bowel disease, renal colic, as well as others were entertained. Physical examination findings: As above. ER treatment provided: Morphine, Zofran On reassessment the patient felt better. Diagnostics interpreted by me: The labs revealed improving leukocytosis by chart review Imaging studies: US SOFT TISSUE: Compared to CT of 10/01/17 There is some hyperemic tissue in the area of interest lateral to the ostomy site. This is nonspecific, and could be a normal postoperative change. There is no visualized abscess. Radiologist: Adams Patel M.D. Exam and history seem consistent with mild irritation to the adhesives. Patient was advised to call his surgeon tomorrow for further evaluation and treatment and other options for ostomy bags. Patient states he seems to be allergic to multiple types of adhesives. He was advised to address this with his specialist. Patient had no signs of abscess. No signs of skin breakdown. He was afebrile and nontoxic. He was advised to return to the intermediate for fevers, severe pain, vomiting, problems with his ostomy, worsening signs or symptoms or as needed.By the evaluation outlined above emergent etiologies such as appendicitis, diverticulitis, PUD, biliary pathology, UTI, pancreatitis, obstruction, mesenteric ischemia, aortic pathology, infections, inflammatory bowel disease, renal colic, as well as others were deemed relatively unlikely. The pt informed about the findings as listed above. All questions were answered and pleased with the treatment. Return instructions were outlined and the patient was discharged in stable condition. Case reviewed with my attending Referral: The patient was referred back to their surgeon for follow-up in 2 to 3 days for a recheck of the current condition. Medical Decision As above Medication Reconcilliation Current Medication List: was personally reviewed by me Blood Pressure Screening Patient's blood pressure: Elevated blood pressure Blood pressure disposition: Elevated BP felt to be situational Impression Primary Impression: Abdominal wall pain Additional Impression: Skin irritation Departure Information Dispostion Home / Self-Care Condition GOOD Forms WORK / SCHOOL INSTRUCTIONS, HOME CARE DOCUMENTATION FORM, IMPORTANT VISIT INFORMATION Patient Instructions My [facility] Additional Instructions Contact your surgeon tomorrow about new ostomy bags. It appears your skin is irritated from the adhesive. Keep the area dry and clean. Follow-up with family care in 2-3 days. Return to ER sooner for chest pain, difficulty breathing, fevers, abdominal pain , worsening signs or symptoms or as needed. Problem Qualifiers
--- NOTE | 2017-10-07 06:50 | DIAGNOSTIC IMAGING REPORT ---
ABDOMEN LIMITED (US) HISTORY: Pain pain/redness arround ostomy site, ? abscess. COMPARISON: CT 10/01/2017 FINDINGS: Ultrasonic evaluation of the soft tissues lateral to the patient's ostomy site demonstrates nonspecific hyperemic tissue. No evidence for abscess or collection. No well-defined mass. IMPRESSION: Mild soft tissue hyperemia lateral to the ostomy site. No evidence for abscess or collection. The above report was generated using voice recognition software. It may contain grammatical, syntax or spelling errors. Electronically signed by: Greg Duque M.D. 10/07/2017 6:49 AM Dictated Date/Time: 10/07/2017 6:48 AM
== END 2017-10-07 01:20 | disposition home or self-care (01) ==
LOC: C.EDB 20:29 → C.EDC 10-07 01:20
DX: R10.9 Unspecified abdominal pain (principal); L98.9 Disorder of the skin and subcutaneous tissue, unspecified; F90.9 Attention-deficit hyperactivity disorder, unspecified type; Z93.2 Ileostomy status; Z87.898 Personal history of other specified conditions; Z82.49 Family history of ischemic heart disease and other diseases of the circulatory system; Z83.3 Family history of diabetes mellitus

== ENCOUNTER 2017-10-21 23:18 | Emergency (ER) | payer OTHER ==
[~2017-10-21] VITALS: Ht 175.3 cm; Wt 115.4 kg
[2017-10-21 23:27] VITALS: TEMP 36.4; Ht 175.3 cm; Wt 115.4 kg
[2017-10-22] MEDS ORDERED: SODIUM CHLORIDE 0.9% 1000ML 1,000 ML IV STA
[2017-10-22] MEDS ORDERED: ONDANSETRON INJ 2 MG/ML 2 ML VIAL IV STA
--- NOTE | 2017-10-22 00:08 | EMERGENCY ROOM VISIT NOTE ---
History Report prepared by Meseret: Renée Brooks Under the Supervision of: Dr. Matty Goldberg M.D. First contact with patient: 23:44 Chief Complaint: ALLERGIC REACTION Stated Complaint: BODY NUMB, AFTER TAKINIG TYLENOL- HEMOPHILIAC History of Present Illness The patient is a 22 year old male who presents to the Emergency Room with complaints of persistent medication side effects that began about 2 weeks ago. The patient states that he has been nauseous, light headed, experiencing palpitations, and feeling confused every time he takes any type of medication, including Tylenol and Oxycodone. He notes that he has been experiencing abdominal pain, which he believes might be secondary to his recent ileostomy revision. He denies any anxiety. He reports that he has stopped taking Percocet one week ago. The patient states that he went to [place] yesterday for abdominal pain and was told that he might be developing cirrhosis. He notes that he has not had any alcohol in months. The patient states has a history of ADHD. Source of History: patient Onset: 2 weeks ago Position: other (global) Quality: other (medication side effects) Timing: other (persistent) Associated Symptoms: + nausea (nauseous), + abdominal pain Note: Associated symptoms include: light headed, experiencing palpitations, and feeling confused Patient denies anxiety. Review of Systems See HPI for pertinent positives and negatives. A total of ten systems were reviewed and were otherwise negative. Past Medical & Surgical Medical Problems: (1) Attention deficit hyperactivity disorder (2) Familial polyposis (3) hemophilia (4) Hypopotassemia (5) Ileostomy Status Surgical Problems: (1) H/O colectomy Family History Cancer Diabetes mellitus Hypertension Social History Smoking Status: Never Smoker Alcohol Use: none Drug Use: none Marital Status: in relationship Housing Status: lives with family Occupation Status: employed Current/Historical Medications Scheduled Acetaminophen (Tylenol), 1,000 MG PO PRN UD Allergies Coded Allergies: NSAIDs (Verified Allergy, Unknown, hemophilia, 10/22/17) Aspirin (Verified Adverse Reaction, Unknown, hemophilia, 10/22/17) Physical Exam Vital Signs Date Time Temp Pulse Resp B/P (MAP) Pulse Ox O2 Delivery O2 Flow Rate FiO2 10/22/17 01:42 93 18 128/79 99 Room Air 10/21/17 23:35 98 Room Air 10/21/17 23:27 36.4 112 24 155/106 98 Room Air Physical Exam GENERAL: Awake, alert, anxious-appearing, but in no distress HENT: Dry mucous membranes. Normocephalic, atraumatic. Oropharynx unremarkable. EYES: Normal conjunctiva. Sclera non-icteric. NECK: Supple. No nuchal rigidity. FROM. No JVD. RESPIRATORY: Clear to auscultation. CARDIAC: Regular rate, normal rhythm. Extremities warm and well perfused. Pulses equal. ABDOMEN: Ostomy site is clean, dry, and intact. Soft, non-distended. No tenderness to palpation. No rebound or guarding. No masses. RECTAL: Deferred. MUSCULOSKELETAL: Chest examination reveals no tenderness. The back is symmetrical on inspection without obvious abnormality. There is no CVA tenderness to palpation. No joint edema. LOWER EXTREMITIES: Calves are equal size bilaterally and non-tender. No edema. No discoloration. NEURO: Normal sensorium. No sensory or motor deficits noted. Normal reflexes, No rigidity or clonus. SKIN: No rash or jaundice noted. Medical Decision & Procedures Laboratory Results 10/22/17 00:10 Red Blood Count 5.43, Mean Corpuscular Volume 83.8, Mean Corpuscular Hemoglobin 29.3, Mean Corpuscular Hemoglobin Concent 34.9, Mean Platelet Volume 9.9, Neutrophils (%) (Auto) 59.2, Lymphocytes (%) (Auto) 32.2, Monocytes (%) (Auto) 7.5, Eosinophils (%) (Auto) 0.6, Basophils (%) (Auto) 0.3, Neutrophils # (Auto) 5.86, Lymphocytes # (Auto) 3.18, Monocytes # (Auto) 0.74, Eosinophils # (Auto) 0.06, Basophils # (Auto) 0.03 10/22/17 00:10 Test 10/22/17 00:10 White Blood Count 9.89 K/uL (4.8-10.8) Red Blood Count 5.43 M/uL (4.7-6.1) Hemoglobin 15.9 g/dL (14.0-18.0) Hematocrit 45.5 % (42-52) Mean Corpuscular Volume 83.8 fL (80-100) Mean Corpuscular Hemoglobin 29.3 pg (25-34) Mean Corpuscular Hemoglobin Concent 34.9 g/dl (32-36) Platelet Count 212 K/uL (130-400) Mean Platelet Volume 9.9 fL (7.4-10.4) Neutrophils (%) (Auto) 59.2 % Lymphocytes (%) (Auto) 32.2 % Monocytes (%) (Auto) 7.5 % Eosinophils (%) (Auto) 0.6 % Basophils (%) (Auto) 0.3 % Neutrophils # (Auto) 5.86 K/uL (1.4-6.5) Lymphocytes # (Auto) 3.18 K/uL (1.2-3.4) Monocytes # (Auto) 0.74 K/uL (0.11-0.59) Eosinophils # (Auto) 0.06 K/uL (0-0.5) Basophils # (Auto) 0.03 K/uL (0-0.2) RDW Standard Deviation 41.4 fL (36.4-46.3) RDW Coefficient of Variation 13.6 % (11.5-14.5) Immature Granulocyte % (Auto) 0.2 % Immature Granulocyte # (Auto) 0.02 K/uL (0.00-0.02) Anion Gap 13.0 mmol/L (3-11) Est Creatinine Clear Calc Drug Dose 145.2 ml/min Estimated GFR () 123.3 Estimated GFR (Non- 106.4 BUN/Creatinine Ratio 8.6 (10-20) Calcium Level 9.3 mg/dl (8.5-10.1) Phosphorus Level 2.2 mg/dl (2.5-4.9) Magnesium Level 1.8 mg/dl (1.8-2.4) Total Bilirubin 0.4 mg/dl (0.2-1) Direct Bilirubin < 0.1 mg/dl (0-0.2) Aspartate Amino Transf (AST/SGOT) 45 U/L (15-37) Alanine Aminotransferase (ALT/SGPT) 87 U/L (12-78) Alkaline Phosphatase 85 U/L (45-117) Total Protein 7.8 gm/dl (6.4-8.2) Albumin 4.0 gm/dl (3.4-5.0) Lipase 229 U/L (73-393) Laboratory results reviewed by me Medications Administered Medications (Trade) Dose Ordered Sig/Teodora Route Start Time Stop Time Status Last Admin Dose Admin Sodium Chloride 1,000 ml @ 999 mls/hr Q1H1M STAT IV 10/22/17 00:00 10/22/17 01:00 DC 10/22/17 00:17 999 MLS/HR Ondansetron HCl (Zofran Inj) 4 mg NOW STAT IV 10/22/17 00:00 10/22/17 00:04 DC 10/22/17 00:16 4 MG Lorazepam (Ativan Tab) 0.5 mg NOW STAT SL 10/22/17 00:48 10/22/17 00:49 DC 10/22/17 00:52 0.5 MG Magnesium Oxide (Mag-Ox Tab) 400 mg NOW STAT PO 10/22/17 01:21 10/22/17 01:24 DC 10/22/17 01:32 400 MG Potassium/ Phosphorus/Sodium (Phospha 250 Neutral 155-852-130 Mg) 2 tab NOW STAT PO 10/22/17 01:21 10/22/17 01:24 DC 10/22/17 01:33 2 TAB ED Course 2346: The patient was evaluated in room B10. A complete history and physical exam was performed. Medical Decision I reviewed the patient's past medical history, medications, and the nursing notes as described above. The patient's presentation and history were concerning for dehydration, electrolyte abnormality, and anxiety. The patient is a 22-year-old gentleman with a past medical history of familial polyposis s/p ileostomy (with revision 10/01/2017), hemophilia presents to emergency department with complaints of feeling "out of it" tingling in his head and his arms that has been ongoing for the past several weeks in the setting of his baseline ostomy pain since his revision per hpi. Of note, this is the patient's seventh emergency department visit within the last month related to these symptoms. Arrival patient is anxious appearing but in no acute distress, HR 110s and VSS otherwise stable. Exam is unremarkable. Normal reflexes and no rigidity. Ostomy site is without signs of infection. WBC within normal limits. K, Mg, Phosphorus are marginally decreased. Patient improved after IVF and ativan. Given recent multiple negative ED w/u including CT scan yesterday at [place], no indication for further w/u at this time. Sx most likely related to anxiety component as well as mild dehydration. I emphasized to the patient the importance of following up with his primary care physician to help manage the symptoms. Case management assisting to help arrange outpatient ED follow-up. Findings and plan for follow-up reviewed with patient. Patient agreeable and d/c'd per discharge instructions. Medication Reconcilliation Current Medication List: was personally reviewed by me Blood Pressure Screening Patient's blood pressure: Elevated blood pressure Blood pressure disposition: Elevated BP felt to be situational Impression Primary Impression: Anxiety Scribe Attestation The scribe's documentation has been prepared under my direction and personally reviewed by me in its entirety. I confirm that the note above accurately reflects all work, treatment, procedures, and medical decision making performed by me. Departure Information Dispostion Home / Self-Care Referrals Farzana Goel (PCP) Forms HOME CARE DOCUMENTATION FORM, IMPORTANT VISIT INFORMATION Patient Instructions Anxiety Body Response, Electrolytes, My [facility] Additional Instructions Please follow up with your primary care physician in the next 1-3 days for re- evaluation. The exact cause of your symptoms are unclear at this time but may be a combination of anxiety as well as mild dehydration. Your potassium, magnesium, and phosphorus Otherwise, your exam, EKG, chest xray, and lab results did not show signs of an emergent condition at this time. Acetaminophen or ibuprofen for pain and fevers as needed. Zofran as needed for nausea. Drink plenty of fluids to ensure hydration. Return to the emergency department for worsening symptoms as described in the accompanying instructions.
[2017-10-22 00:24] LABS: BASO % 0.3 %; BASO ABS # 0.03 K/uL (0-0.2); EOS % 0.6 %; EOS ABS # 0.06 K/uL (0-0.5); HEMATOCRIT 45.5 % (42-52); HEMOGLOBIN 15.9 g/dL (14.0-18.0); IG# 0.02 K/uL (0.00-0.02); LYMPH % 32.2 %; LYMPH ABS # 3.18 K/uL (1.2-3.4); MEAN CELL VOLUME 83.8 fL (80-100); MEAN CORPUSCULAR HEMOGLOBIN 29.3 pg (25-34); MEAN CORPUSCULAR HGB CONC 34.9 g/dl (32-36); MEAN PLATELET VOLUME 9.9 fL (7.4-10.4); MONO % 7.5 %; MONO ABS # 0.74 K/uL (0.11-0.59); NEUT % 59.2 %; NEUT ABS # 5.86 K/uL (1.4-6.5); PLATELET COUNT 212 K/uL (130-400); RED CELL DISTRIBUTION WIDTH CV 13.6 % (11.5-14.5); RED CELL DISTRIBUTION WIDTH SD 41.4 fL (36.4-46.3); WHITE BLOOD COUNT 9.89 K/uL (4.8-10.8)
[2017-10-22] MEDS ORDERED: LORAZEPAM 0.5 MG TAB SL STA (00:48)
[2017-10-22 00:58] LABS: ALKALINE PHOSPHATASE 85 U/L (45-117); ALT/SGPT 87 U/L (12-78); BLOOD UREA NITROGEN 9 mg/dl (7-18); CALCIUM 9.3 mg/dl (8.5-10.1); CARBON DIOXIDE 23 mmol/L (21-32); GLUCOSE 136 mg/dl (70-99); LIPASE 229 U/L (73-393); PHOSPHORUS 2.2 mg/dl (2.5-4.9); TOTAL PROTEIN 7.8 gm/dl (6.4-8.2)
[2017-10-22 01:09] LABS: POTASSIUM 3.6 mmol/L (3.5-5.1); SODIUM 140 mmol/L (136-145)
[2017-10-22 01:12] LABS: AST/SGOT 45 U/L (15-37)
[2017-10-22] MEDS ORDERED: MAGNESIUM OXIDE 400 MG TAB PO STA (01:21)
[2017-10-22] MEDS ORDERED: POT PHOSPHATE MONOBASIC W/ SOD TAB PO STA (01:21)
[2017-10-22 01:42] VITALS: BP 128/79; PULSE 93; O2SAT 99
== END 2017-10-22 01:43 | disposition home or self-care (01) ==
LOC: C.EDB 23:20
DX: F41.9 Anxiety disorder, unspecified (principal); E86.0 Dehydration; F90.9 Attention-deficit hyperactivity disorder, unspecified type; D12.6 Benign neoplasm of colon, unspecified; D66 Hereditary factor VIII deficiency; Z90.49 Acquired absence of other specified parts of digestive tract; Z93.2 Ileostomy status; Z80.9 Family history of malignant neoplasm, unspecified; Z83.3 Family history of diabetes mellitus; Z82.49 Family history of ischemic heart disease and other diseases of the circulatory system; Z88.6 Allergy status to analgesic agent

== ENCOUNTER 2017-11-24 19:52 | Emergency (ER) | payer OTHER ==
[~2017-11-24] VITALS: Ht 175.3 cm; Wt 108.7 kg
[~2017-11-24 19:52] MED LIST changes: -OXYC-57 PO
[2017-11-24 20:12] VITALS: TEMP 36.9; Ht 175.3 cm; Wt 108.7 kg
[2017-11-24 22:05] VITALS: BP 148/93; PULSE 93; O2SAT 97
--- NOTE | 2017-11-25 05:51 | EMERGENCY ROOM VISIT NOTE ---
History First contact with patient: 21:27 Chief Complaint: OTHER COMPLAINT Stated Complaint: HEMOPHILIA,NEED IV History of Present Illness The patient is a 22 year old male who presents to the Emergency Room with complaints of needing IV for his factor VIII as he has dental work in the morning. Patient's been here multiple times for this. He has no other medical complaints. He has his medication at home. Review of Systems A 6 system review of systems was completed with positives and pertinent negatives listed in the HPI. Past Medical/Surgical History Medical Problems: (1) Attention deficit hyperactivity disorder (2) Familial polyposis (3) hemophilia (4) Hypopotassemia (5) Ileostomy Status Surgical Problems: (1) H/O colectomy Family History Cancer Diabetes mellitus Hypertension Social History Smoking Status: Never Smoker Alcohol Use: none Drug Use: none Marital Status: in relationship Housing Status: lives with family Occupation Status: employed Current/Historical Medications Scheduled Acetaminophen (Tylenol), 1,000 MG PO PRN UD Physical Exam Vital Signs Date Time Temp Pulse Resp B/P (MAP) Pulse Ox O2 Delivery O2 Flow Rate FiO2 11/24/17 22:05 93 148/93 97 11/24/17 20:12 36.9 97 16 143/92 97 Room Air Physical Exam VITALS: Vitals are noted on the nurse's note and reviewed by myself. Vital signs hypertensive GENERAL: Pleasant male, in no acute distress, nondiaphoretic, well-developed well-nourished. SKIN: Capillary reflex less than 2 seconds. HEENT: Normocephalic. PERRLA. EOMI. Nares patent. Mucous membranes moist. Neck is supple without nuchal rigidity. HEART: Regular rate and rhythm without murmurs gallops or rubs. LUNGS: Clear to auscultation bilaterally without wheezes, rales or rhonchi. No retractions or accessory muscle use. ABDOMEN: Positive bowel sounds x 4. Normal tympanic percussion. Soft, nontender, without masses or organomegaly. Santana sign negative. No guarding or rebound tenderness. MUSCULOSKELETAL: No gross musculoskeletal defects. No pedal edema. No calf tenderness. NEURO: Patient was alert and oriented to person place and time. Normal sensation to light and sharp touch. No focal neurological deficits. Medical Decision & Procedures ED Course Prior records reviewed and summarized as above. Triage Nursing notes reviewed. Additional history obtained from The patient's history was concerning for needing an IV for his Factor VIII for his dental work in the morning. Physical examination: Patient is well-appearing ER treatment provided: IV was placed On reassessment the patient felt better. Diagnostics interpreted by me: Deferred This appears to be patient needs an IV for his medication as he has hemophilia. He was advised to have a dentist remove this for him. He has been here multiple times for this. He was counseled on caring for the IV and verbalized understanding this. He was discharged home in stable condition with his . Patient denied any IV or drug abuse. He was informed his blood pressure was high. The pt informed about the findings as listed above. All questions were answered and pleased with the treatment. Return instructions were outlined and the patient was discharged in stable condition. Referral: The patient was referred back to primary care physician for follow-up in 2 to 3 days for a recheck of the current condition. The chart was completed utilizing [employer] Speech voice recognition software. Grammatical errors, random word insertions, pronoun errors, and incomplete sentences are an occassional consequence of this system due to software limitations, ambient noise, and hardware issues. Any formal questions or concerns about the content, text, or information contained within the body of this dictation should be directly addressed to the physician industrial hire sales assistant for clarification. Medical Decision As above Medication Reconcilliation Current Medication List: was personally reviewed by me Blood Pressure Screening Patient's blood pressure: Elevated blood pressure Blood pressure disposition: Elevated BP felt to be situational Impression Primary Impression: Encounter for intravenous line placement Departure Information Dispostion Home / Self-Care Condition GOOD Referrals Farzana GoelN.PDevin (PCP) Forms WORK / SCHOOL INSTRUCTIONS, HOME CARE DOCUMENTATION FORM, IMPORTANT VISIT INFORMATION Patient Instructions My [facility] Additional Instructions Patient was encouraged to continue his factor 8 infusions as prescribed. Have your dentist remove you IV after your procedure tomorrow. Patient was encouraged to return the ED for any concerning symptoms.
== END 2017-11-24 22:08 | disposition home or self-care (01) ==
LOC: C.EDB 19:54 → C.EDC 22:08
DX: Z45.2 Encounter for adjustment and management of vascular access device (principal); D66 Hereditary factor VIII deficiency; Z86.59 Personal history of other mental and behavioral disorders

== ENCOUNTER 2017-12-10 17:59 | Emergency (ER) | payer OTHER ==
[~2017-12-10] VITALS: Ht 170.2 cm; Wt 116.9 kg
[2017-12-10 18:11] VITALS: Ht 170.2 cm; Wt 116.9 kg
--- NOTE | 2017-12-10 19:09 | EMERGENCY ROOM VISIT NOTE ---
History Report prepared by Meseret: Renée Brooks Under the Supervision of: Dr. Juan Short M.D. First contact with patient: 18:49 Chief Complaint: OTHER COMPLAINT Stated Complaint: HEMOPHILIA, HAS CUTS WANTS TO MAKE SURE NO BLEED History of Present Illness The patient is a 22 year old male who presents to the Emergency Room with complaints of scrapes on his knees and right elbow which occurred prior to arrival. He reports that he tripped over his shoe laces and fell, only scraping himself but because of the way he landed is now experiencing some shoulder discomfort. The patient has a history of hemophilia A, noting that he came to the Emergency Department to make sure that there was no bleeding. Source of History: patient Onset: prior to arrival Position: shoulder (right), knee (bilateral) Quality: other (scrapes) Note: Associated symptoms include: shoulder discomfort. Review of Systems See HPI for pertinent positives & negatives. A total of 10 systems reviewed and were otherwise negative. Past Medical & Surgical Medical Problems: (1) Attention deficit hyperactivity disorder (2) Familial polyposis (3) hemophilia (4) Hypopotassemia (5) Ileostomy Status Surgical Problems: (1) H/O colectomy Family History Cancer Diabetes mellitus Hypertension Social History Smoking Status: Never Smoker Alcohol Use: none Drug Use: none Marital Status: in relationship Housing Status: lives with significant other (fiance) Occupation Status: employed Current/Historical Medications Scheduled Acetaminophen (Tylenol), 1,000 MG PO PRN UD Scheduled PRN Oxycodone Immediate Rel Tab (Roxicodone Ir), 1-2 TAB PO Q4H PRN for Severe Pain Allergies Coded Allergies: NSAIDs (Verified Allergy, Unknown, hemophilia, 10/22/17) Aspirin (Verified Adverse Reaction, Unknown, hemophilia, 10/22/17) Physical Exam Vital Signs Date Time Temp Pulse Resp B/P (MAP) Pulse Ox O2 Delivery O2 Flow Rate FiO2 12/10/17 20:33 36.7 103 18 156/98 98 12/10/17 18:11 36.7 103 18 156/98 98 Room Air Physical Exam GENERAL: Awake, alert, well-appearing, in no acute distress HENT: Normocephalic, atraumatic. Oropharynx unremarkable. EYES: Normal conjunctiva. Sclera non-icteric. NECK: Supple. No nuchal rigidity. FROM. No JVD. RESPIRATORY: Clear to auscultation. CARDIAC: Regular rate, normal rhythm. Extremities warm and well perfused. Pulses equal. ABDOMEN: Soft, non-distended. No tenderness to palpation. No rebound or guarding. No masses. RECTAL: Deferred. MUSCULOSKELETAL: Good range of motion to right shoulder, no swelling present. Chest examination reveals no tenderness. The back is symmetrical on inspection without obvious abnormality. There is no CVA tenderness to palpation. No joint edema. LOWER EXTREMITIES: Calves are equal size bilaterally and non-tender. No edema. No discoloration. NEURO: Normal sensorium. No sensory or motor deficits noted. SKIN: Superficial abrasion to right elbow. No rash or jaundice noted. Medical Decision & Procedures ER Provider Diagnostic Interpretation: Radiology results as stated below per my review and radiologist interpretation: R ELBOW MIN 3 VIEWS ROUTINE CLINICAL HISTORY: 22 years-old Male presenting with Pt c/o Rt elbow pain . TECHNIQUE: Frontal, oblique, and lateral views of the right elbow were obtained. COMPARISON: None. FINDINGS: Elbow joint congruent. No acute fracture or malalignment. No advanced degenerative change. No elbow joint effusion. IMPRESSION: No acute osseous injury. Electronically signed by: Angelo Acevedo M.D. 12/10/2017 7:59 PM Dictated Date/Time: 12/10/2017 7:59 PM R KNEE 1 OR 2 VIEWS ROUTINE CLINICAL HISTORY: 22 years-old Male presenting with Pt c/o Rt knee pain, fall from running. TECHNIQUE: Frontal and crosstable lateral views of the right knee were obtained. COMPARISON: Correlation made to plain radiographs of the left knee performed the same day. FINDINGS: Knee joint congruent. No acute fracture or malalignment. No advanced degenerative change. No effusion. IMPRESSION: No acute osseous injury. Electronically signed by: Angelo Acevedo M.D. 12/10/2017 8:05 PM Dictated Date/Time: 12/10/2017 8:04 PM L KNEE 1 OR 2 VIEWS ROUTINE CLINICAL HISTORY: 22 years-old Male presenting with Pt c/o left knee pain, fall from running. TECHNIQUE: Frontal and crosstable lateral views of the left knee were obtained. COMPARISON: Correlation made to plain radiographs of the right knee performed the same day. FINDINGS: Knee joint congruent. No acute fracture or malalignment. No advanced degenerative change. No large effusion. IMPRESSION: No acute osseous injury. Electronically signed by: Angelo Acevedo M.D. 12/10/2017 8:04 PM Dictated Date/Time: 12/10/2017 8:03 PM R SHOULDER MIN 2 VIEWS ROUTINE CLINICAL HISTORY: 22 years-old Male presenting with Pt c/o Rt shoulder pain. TECHNIQUE: Internal rotation, external rotation, Grashey views of the right shoulder were obtained. COMPARISON: None. FINDINGS: Glenohumeral and acromioclavicular joints congruent. No acute fracture or malalignment. No advanced degenerative change. No radiographic soft tissue abnormality. IMPRESSION: No acute osseous injury. Electronically signed by: Angelo Acevedo M.D. 12/10/2017 7:59 PM Dictated Date/Time: 12/10/2017 7:58 PM ED Course 1901: Past medical records reviewed. The patient was evaluated in room D3. A complete history and physical examination was performed. 1909: Ordered Dilaudid Inj 1mg IV. 1944: Ordered Antihemophilic Factor 2760 inter.unit/Syringe ml @ 5mls/min Protocol IV. 2022: I reevaluated the patient and discussed test findings. He verbalized complete understanding and agreement. The patient will be discharged home. 2029: Ordered Oxycodone HCL 1 homepack PO. Medical Decision Differential diagnosis: Etiologies such as fracture, dislocation, neurovascular compromise, compartment syndrome, soft tissue injury, as well as others were entertained. This is a 22-year-old male who presents emergency department complaining of a fall at home today. The patient is complaining of bruising to his right shoulder and is concerned that he needs factor A. An IV was established and his factor VIII unit was drawn based on his card from his primary care physician. Patient was also given Dilaudid. X-rays are as above. Patient does not appear to have an acute fracture. He was given a sling and ice. I stressed the need for follow-up with orthopedics. Patient was in agreement with the treatment plan. [place] Drug Monitoring Program Drug Monitoring Findings: Patient had Ultram filled 10 days ago. Medication Reconcilliation Current Medication List: was personally reviewed by me Blood Pressure Screening Patient's blood pressure: Elevated blood pressure Blood pressure disposition: Referred to PCP Impression Primary Impression: Fall Additional Impressions: Shoulder pain Knee pain Scribe Attestation The scribe's documentation has been prepared under my direction and personally reviewed by me in its entirety. I confirm that the note above accurately reflects all work, treatment, procedures, and medical decision making performed by me. Departure Information Dispostion Home / Self-Care Prescriptions Oxycodone Immediate Rel Tab (ROXICODONE IR) 5 Mg Tab 1-2 TAB PO Q4H Y for Severe Pain, #10 TAB Prov: Juan Short MD 12/10/17 Referrals Farzana Goel (PCP) Forms HOME CARE DOCUMENTATION FORM, IMPORTANT VISIT INFORMATION, WORK / SCHOOL INSTRUCTIONS Patient Instructions My [facility] Additional Instructions Take 1000 mg Tylenol every 6 hours as needed Take Oxy IR as needed Follow up with [facility] You have been examined and treated today on an emergency basis only. This is not a substitute for, or an effort to provide, complete comprehensive medical care. It is impossible to recognize and treat all injuries or illnesses in a single emergency department visit. It is therefore important that you follow up closely with [facility]. Call as soon as possible for an appointment. Thank you for your time and consideration. I look forward to speaking with you again soon. Please don't hesitate to call us if you have any questions. Problem Qualifiers Primary Impression: Fall Encounter type: initial encounter Qualified Codes: W19.XXXA - Unspecified fall, initial encounter Additional Impressions: Shoulder pain Chronicity: acute Laterality: right Qualified Codes: M25.511 - Pain in right shoulder Knee pain Chronicity: acute Laterality: bilateral Qualified Codes: M25.561 - Pain in right knee; M25.562 - Pain in left knee
[2017-12-10] MEDS ORDERED: HYDROmorphone INJ 1 MG/ML SYR IV STA (19:10)
[2017-12-10] MEDS ORDERED: FACTOR 8/HUMATE-P/RECOMBINATE ONE (19:15)
[2017-12-10] MEDS ORDERED: RECOMBINATE INTER IV ONE (19:45)
--- NOTE | 2017-12-10 20:00 | DIAGNOSTIC IMAGING REPORT ---
R SHOULDER MIN 2 VIEWS ROUTINE CLINICAL HISTORY: 22 years-old Male presenting with Pt c/o Rt shoulder pain. TECHNIQUE: Internal rotation, external rotation, Grashey views of the right shoulder were obtained. COMPARISON: None. FINDINGS: Glenohumeral and acromioclavicular joints congruent. No acute fracture or malalignment. No advanced degenerative change. No radiographic soft tissue abnormality. IMPRESSION: No acute osseous injury. Electronically signed by: Angelo Acevedo M.D. 12/10/2017 7:59 PM Dictated Date/Time: 12/10/2017 7:58 PM
--- NOTE | 2017-12-10 20:01 | DIAGNOSTIC IMAGING REPORT ---
R ELBOW MIN 3 VIEWS ROUTINE CLINICAL HISTORY: 22 years-old Male presenting with Pt c/o Rt elbow pain . TECHNIQUE: Frontal, oblique, and lateral views of the right elbow were obtained. COMPARISON: None. FINDINGS: Elbow joint congruent. No acute fracture or malalignment. No advanced degenerative change. No elbow joint effusion. IMPRESSION: No acute osseous injury. Electronically signed by: Angelo Acevedo M.D. 12/10/2017 7:59 PM Dictated Date/Time: 12/10/2017 7:59 PM
--- NOTE | 2017-12-10 20:05 | DIAGNOSTIC IMAGING REPORT ---
L KNEE 1 OR 2 VIEWS ROUTINE CLINICAL HISTORY: 22 years-old Male presenting with Pt c/o left knee pain, fall from running. TECHNIQUE: Frontal and crosstable lateral views of the left knee were obtained. COMPARISON: Correlation made to plain radiographs of the right knee performed the same day. FINDINGS: Knee joint congruent. No acute fracture or malalignment. No advanced degenerative change. No large effusion. IMPRESSION: No acute osseous injury. Electronically signed by: Angelo Acevedo M.D. 12/10/2017 8:04 PM Dictated Date/Time: 12/10/2017 8:03 PM
--- NOTE | 2017-12-10 20:06 | DIAGNOSTIC IMAGING REPORT ---
R KNEE 1 OR 2 VIEWS ROUTINE CLINICAL HISTORY: 22 years-old Male presenting with Pt c/o Rt knee pain, fall from running. TECHNIQUE: Frontal and crosstable lateral views of the right knee were obtained. COMPARISON: Correlation made to plain radiographs of the left knee performed the same day. FINDINGS: Knee joint congruent. No acute fracture or malalignment. No advanced degenerative change. No effusion. IMPRESSION: No acute osseous injury. Electronically signed by: Angelo Acevedo M.D. 12/10/2017 8:05 PM Dictated Date/Time: 12/10/2017 8:04 PM
[2017-12-10] MEDS ORDERED: OXYC1TAB3 PO (20:22)
[2017-12-10] MEDS ORDERED: OXYCODONE IR HOME PACK PO ONE (20:30)
[2017-12-10 20:33] VITALS: BP 156/98; PULSE 103; TEMP 36.7; O2SAT 98
== END 2017-12-10 20:34 | disposition home or self-care (01) ==
LOC: C.EDB 18:00 → C.EDD 20:34
DX: M25.511 Pain in right shoulder (principal); M25.561 Pain in right knee; M25.562 Pain in left knee; W01.0XXA Fall on same level from slipping, tripping and stumbling without subsequent striking against object, initial encounter; S50.311A Abrasion of right elbow, initial encounter; D66 Hereditary factor VIII deficiency; Z93.2 Ileostomy status; Z90.49 Acquired absence of other specified parts of digestive tract; Z88.6 Allergy status to analgesic agent

== ENCOUNTER 2019-01-23 16:33 | Inpatient (IN) ==
--- OUTSIDE RECORDS SUMMARY | 2019-01-23 16:37 | External Medical Summary | Continuity of Care Document ---
:1995 Author Name Jagdish Olivas, Provider Address Unavailable Unavailable , Care Team Providers Name Role Phone [facility] Deisy, Provider Unavailable [email or web address], UNKNOWN Unavailable Unavailable Problems Active medical history not documented Allergies and Adverse Reactions Allergy history not documented Medications Medications not documented Procedures Procedures not documented Immunizations Immunizations not documented Plan of Treatment Planned Observations Planned Goals not documented Results No Known Results Results not documented
[2019-01-23] MEDS ORDERED: ONDANSETRON INJ 2 MG/ML 2 ML VIAL IV STA (16:57)
[2019-01-23] MEDS ORDERED: MoRPHine SULFATE 4 MG/ML 1 ML CARP\\VIAL IV STA (16:57)
[2019-01-23] MEDS: SODIUM CHLORIDE 0.9% 1000ML 1,000 ML IV SCH ×3 (17:23→20:03)
[2019-01-23 17:27] LABS: Basophils # (auto) 0.03 K/uL (0-0.2); Basophils % (auto) 0.3 %; Eosinophils # (auto) 0.25 K/uL (0-0.5); Eosinophils % (auto) 2.7 %; Hematocrit (blood only) 45.8 % (42-52); Hemoglobin 16.2 g/dL (14.0-18.0); Immature Granulocytes # (auto) 0.03 K/uL (0.00-0.02); Immature Granulocytes % (auto) 0.3 %; Lymphocytes # (auto) 2.32 K/uL (1.2-3.4); Lymphocytes % (auto) 25.1 %; Mean Corpuscular Hgb Conc 35.4 g/dL (32-36); Mean Platelet Volume 9.8 fL (7.4-10.4); Monocytes # (auto) 1.11 K/uL (0.11-0.59); Neutrophils # (auto) 5.49 K/uL (1.4-6.5); Neutrophils % (auto) 59.6 %; Platelet Count 177 K/uL (130-400); RDW Coefficient of Variation 13.8 % (11.5-14.5); RDW Standard Deviation 43.2 fL (36.4-46.3); Red Blood Count 5.39 M/uL (4.7-6.1); White Blood Count 9.23 K/uL (4.8-10.8)
[2019-01-23 17:39] LABS: Appearance Urine Clear (Clear); Bilirubin Urine Negative (Negative); Blood Urine Negative (Negative); Color Urine Yellow; Glucose Urine UA Negative (Negative); Ketones Urine Negative (Negative); Leukocyte Esterase Urine Negative (Negative); Nitrite Urine Negative (Negative); Protein Urine Negative (Negative); Urobilinogen Urine Negative (Negative); pH Urine 5.5 (4.5-7.5)
--- NOTE | 2019-01-23 17:40 | XRay Report ---
XR chest 1V portable CLINICAL HISTORY: cough COMPARISON STUDY: 03/13/2017 FINDINGS: The heart is the upper limits of normal in size. Increased interstitial markings, likely re lates to technical factors given the age and body habitus and degree of inspiration. There is no foca l pulmonary consolidation. There are no pleural effusions. There is no overt failure.[ IMPRESSION: 1. Slight interstitial prominence, a finding likely related to technical factors 2. No evidence of lobar consolidation Electronically signed by: Dick Morel M.D. 01/23/2019 5:38 PM
[2019-01-23 17:47] LABS: Albumin Level 4.1 gm/dl (3.4-5.0); BUN Creatinine Ratio 5.3 (10-20); Calcium 9.1 mg/dl (8.5-10.1); Creatinine Clr Calc Pharmacy 157.2 ml/min; Est GFR (African American) 137.2; Est GFR (Non-African American) 118.4; Potassium 3.5 mmol/L (3.5-5.1)
[2019-01-23 17:48] LABS: Albumin Globulin Ratio 1.2 (0.9-2); Bilirubin,Total 0.6 mg/dl (0.2-1); Globulin 3.3 gm/dl (2.5-4.0); Total Protein 7.4 gm/dl (6.4-8.2)
[2019-01-23] MEDS ORDERED: IOVERSOL 100ml IV PRN (18:00)
--- NOTE | 2019-01-23 18:13 | CT Scan Report ---
CT abd pelvis IV con only CLINICAL HISTORY: Left-sided abdominal pain. History of familial adenomatous polyposis. COMPARISON STUDY: May 06, 2018 TECHNIQUE: The patient was scanned in a dynamic helical fashion during intravenous administration of 90 cc Optiray 320. A dose lowering technique was utilized adhering to the principles of ALARA. CT DOSE: 1022.29 mGy.cm FINDINGS: Lower chest: The heart is normal in size and configuration, without pericardial effusion. The lung ba ses and pleural spaces are clear. Liver: The contrast-enhanced liver is normal in size, contour, and attenuation. There is no intrahepa tic biliary ductal dilatation. The hepatic veins and portal veins are patent. Gallbladder: Unremarkable. Spleen: The spleen is mildly enlarged measuring 15 cm Pancreas: Unremarkable. Adrenal glands: Unremarkable. Kidneys: There is symmetric renal cortical enhancement. The kidneys are normal in size without hydron ephrosis. Bowel: There are postsurgical changes of a total colectomy with a left lower quadrant ileostomy. Ther e is dilatation of the distal ileal loop just proximal to the ostomy. There is infiltration of the hameed rrounding mesenteric fat. There is mild bowel wall thickening. There are several upstream fluid-fille d bowel loops. Peritoneum: There is no intraperitoneal free air or abdominal ascites. Vasculature: The abdominal aorta is normal in course and caliber. Adenopathy: There are mildly prominent mesenteric lymph nodes likely reactive. Pelvic viscera: The bladder, and pelvic viscera are unremarkable. Skeletal structures: No destructive osseous lesions are seen. IMPRESSION: 1. Postsurgical changes of a prior colectomy and left-sided ileostomy 2. Dilatation of the distal ileal loop just proximal to the ostomy with bowel wall thickening and inf iltration of the adjacent peritoneal fat. The findings are likely secondary to either an enteritis or ischemia. 3. Splenomegaly Electronically signed by: Dick Morel M.D. 01/23/2019 6:11 PM
[2019-01-23] MEDS ORDERED: PIPERACILLIN/TAZOBACTAM 4.5 GM/120 ML BAG IV ONE (18:39)
[2019-01-23] MEDS ORDERED: PIPERACILL/TAZOBAC CONSULT ACTIVE PRN (18:39)
[2019-01-23] MEDS ORDERED: SODIUM CHLORIDE 0.9% 1000ML 1,000 ML IV ONE (18:39)
[2019-01-23] MEDS ORDERED: MoRPHine SULFATE 2 MG/ML CARP ONE (19:17)
[2019-01-23] MEDS ORDERED: ACETAMINOPHEN 325 MG TAB PO PRN (19:52)
[2019-01-23] MEDS ORDERED: ACETAMINOPHEN 500 MG TAB PO PRN (19:52)
[2019-01-23] MEDS ORDERED: ALUMINUM/MAGNESIUM SUSP 30 ML UDC PO PRN (19:52)
--- NOTE | 2019-01-23 20:24 | Emergency Department Note ---
Entered by Kiara Lewis acting as a scribe for History of Present Illness General Chief complaint: GI Assessment Stated complaint: thoart pain Source: patient History of Present Illness Onset (ago): week(s) 1 Location: abdomen Severity: similar to prior episodes Pain Consistency: + other (Worsening) Maximum Pain Intensity: 8 Quality: + other (Abdominal pain) Relieved By: not by other (stool softeners, [place] and Coca-[employer]a) Exacerbated By: + other (Coughing) Associated symptoms: + cough and + other (Rhinorrhea); no fever/chills Treatments prior to arrival: other (stool softeners, [place] and [employer]) The patient is a 23 year old male presenting to the Emergency Department complaining of worsening abdominal pain starting 1 week ago. The patient reports that he has abdominal pain, a cough and rhinorrhea. 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 He explains that he has experienced these symptoms before and ended up having a prolapse. He notes that he took stool softeners, [place] and [employer] to relieve his symptoms none of which helped relieve his symptoms. He adds that coughing worsens his pain. 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 He states that RESOURCE DEVELOPMENT DIRECTOR he called [facility] who recommended that the patient come to the ED for pain management. The patient denies fevers and chills. Home Medications Home Medications Medication Instructions Recorded Confirmed Type acetaminophen [Tylenol Extra 1,000 mg PO Q6H PRN 05/06/18 01/23/19 History Strength] cannabidiol (CBD) extract 0 mg PO DIRECTED PRN 01/23/19 01/23/19 History glycopyrrolate 1 mg PO TID 01/23/19 01/23/19 History venlafaxine 75 mg PO DAILY 01/23/19 01/23/19 History Allergies Allergy/AdvReac Type Severity Reaction Status Date / Time NSAIDS (Non-Steroidal Allergy Unknown hemophilia Verified 01/23/19 17:34 Anti-Inflamma aspirin AdvReac Unknown hemophilia Verified 01/23/19 17:34 Past Med/Surg History Medical History DVT prophylaxis Enteritis (Acute) Dehydration (Acute) ARF (acute renal failure) (Acute) Nausea vomiting and diarrhea (Acute) Hypokalemia (Acute) Abdominal wall pain (Acute) At risk for complication of stoma (Acute) Complication of catheter (Acute) Encounter for intravenous line placement (Acute) Epigastric abdominal pain (Acute) GI bleed (Acute) Hematuria (Acute) History of colectomy (Chronic) Left upper quadrant pain (Acute) Right lower quadrant abdominal pain (Acute) Right sided abdominal pain (Acute) Skin irritation (Acute) Stoma dermatitis (Acute) Urinary retention (Acute) Surgical History H/O colectomy (Resolved) Family History Other H/O colectomy Social History Preferred Language: Eritrean Communication Ability: Effective Electroplating Laborer Required: No Beliefs That Will Affect Care: None Other Information That Helps Us Care for You: No Feels Safe at Home: Yes Safety Concerns: Feels Safe At This Time Smoking Status: Current some day smoker Tobacco Type: cigarettes Cigarettes Per Day: on occassional basis Do You Dip or Chew Tobacco: No Hx Alcohol Use: No Review of Systems See HPI for pertinent positives & negatives. and A total of 10 systems reviewed and were otherwise negative Physical Exam Vital Signs Vital Signs - 24 hr 01/23/19 16:42 01/23/19 16:46 01/23/19 17:27 Temperature 36.8 C Temperature Source Oral Oral Sepsis Recent Fever Within 48 Hours No Sepsis New/Unexplained Change in Mental Status No Sepsis Action Taken by Nursing No Action Required Pulse Rate 98 H Pulse Rate [Right Finger] 84 Respiratory Rate 18 17 Respiratory Effort / Characteristics Non-Labored Spontaneous Respiratory Depth Normal Blood Pressure 148/87 H Blood Pressure [Left Arm] 142/68 H Blood Pressure Mean 107 Blood Pressure Mean [Left Arm] 92 Pulse Oximetry 100 96 Oxygen Delivery Method Room Air Room Air 01/23/19 18:40 Temperature Temperature Source Sepsis Recent Fever Within 48 Hours Sepsis New/Unexplained Change in Mental Status Sepsis Action Taken by Nursing Pulse Rate Pulse Rate [Right Finger] 86 Respiratory Rate 17 Respiratory Effort / Characteristics Respiratory Depth Blood Pressure Blood Pressure [Left Arm] 136/69 Blood Pressure Mean Blood Pressure Mean [Left Arm] 91 Pulse Oximetry 95 Oxygen Delivery Method Room Air GENERAL: Patient is sitting up in bed, alert, well appearing, well nourished, no distress, non-toxic. EYE EXAM: normal conjunctiva. OROPHARYNX: no exudate, no erythema, lips, buccal mucosa, and tongue normal and mucous membranes are moist NECK: supple, no nuchal rigidity, no adenopathy, non-tender LUNGS: Clear to auscultation. Normal chest wall mechanics HEART: no murmurs, S1 normal and S2 normal ABDOMEN: abdomen soft, normo-active bowel sounds, no masses, no rebound or guarding. Ostomy in left lower abdomen. Minimal tenderness to palpation. Ostomy is pink and appears well perfused with brown liquid stool present in the bag. BACK: Back is symmetrical on inspection and there is no deformity, no midline tenderness, no CVA tenderness. SKIN: no rashes and no bruising UPPER EXTREMITIES: upper extremities are grossly normal. LOWER EXTREMITIES: No pitting edema. NEURO EXAM: Normal sensorium, cranial nerves II-XII grossly intact, normal speech, no gross weakness of arms, no gross weakness of legs. Course ED COURSE: Vital signs were reviewed and normal. The patients medical record was reviewed The above diagnostic studies were performed and reviewed. ED treatments and interventions as stated above. 1653: The patient was evaluated in room B2. A complete history and physical examination was performed. 183: Upon reevaluation, I discussed my findings with the patient who understands and agrees with the treatment plan. Based on the patients age, coexisting illnesses, exam and lab findings the decision to treat as an inpatient was made. The patient remained stable while under my care. 1826: I discussed the patients case with Dr. Arelis BRIDGES General Surgeon who recommends that the patient be admitted to the hospitalist service. 1834: I discussed the patients case with Dr. Jorge RIVERA hospitalist. He will evaluate the patient for further management. 1838: I discussed the patients case with Dr. Harvey DOMINIQUE who recommends starting the patient on Zosyn. Consultations Consultation #1: I discussed the patients case with Dr. Arelis BRIDGES General Surgeon who recommends that the patient be admitted to the hospitalist service. Time: 18:26 Consultation #2: I discussed the patients case with Dr. Jorge LIM hospitalist. He will evaluate the patient for further management. Time: 18:34 Consultation #3: 1838: I discussed the patients case with Dr. Gabriel - [facility] who recommends starting the patient on Zosyn. Time: 18:38 Administered Medications Sodium Chloride (Nss 1000ml) 1,000 mls @ 100 mls/hr IV .Q10H ADAN Stop: 02/22/19 19:51 Last Admin: 01/23/19 20:03 Dose: 100 mls/hr Documented by: [id number] Ioversol (Optiray 320 100ml) 90 ml IV ONCE PRN PRN Reason: Interaction Checking Stop: 01/27/19 17:59 Last Admin: 01/23/19 18:00 Dose: 90 ml Documented by: [id number] Discontinued Medications Sodium Chloride (Nss 1000ml) 1,000 mls @ 999 mls/hr IV .Q1H1M ADAN Stop: 01/23/19 19:00 Last Admin: 01/23/19 19:02 Dose: Not Given Documented by: [id number] Infusion: 01/23/19 18:26 Dose: 0 mls/hr Documented by: [id number] Admin: 01/23/19 17:23 Dose: 999 mls/hr Documented by: [id number] Piperacillin Sod/Tazobactam Sod (Zosyn) 4.5 gm in 120 mls @ 240 mls/hr IV NOW ONE Stop: 01/23/19 19:08 Last Infusion: 01/23/19 19:29 Dose: 0 mls/hr Documented by: [id number] Admin: 01/23/19 19:02 Dose: 240 mls/hr Documented by: [id number] Sodium Chloride (Nss 1000ml) 1,000 mls @ 999 mls/hr IV .Q1H1M ONE Stop: 01/23/19 19:39 Last Infusion: 01/23/19 20:03 Dose: 0 mls/hr Documented by: [id number] Admin: 01/23/19 19:01 Dose: 999 mls/hr Documented by: [id number] Morphine Sulfate (Morphine Sulfate) 6 mg IV NOW STA Stop: 01/23/19 16:58 Last Admin: 01/23/19 17:22 Dose: 6 mg Documented by: [id number] Morphine Sulfate (Morphine Sulfate) Confirm Administered Dose 2 mg .ROUTE .STK- MED ONE Stop: 01/23/19 19:18 Last Admin: 01/23/19 19:18 Dose: 2 mg Documented by: [id number] Ondansetron HCl (Zofran) 4 mg IV NOW STA Stop: 01/23/19 16:58 Last Admin: 01/23/19 17:22 Dose: 4 mg Documented by: [id number] Medical Decision Making Differential Diagnosis Differential diagnoses includes but is not limited to gastritis, peptic ulcer disease, GERD, gallbladder disease, pancreatitis, small bowel obstruction, acute coronary syndrome, pericarditis, ischemic bowel, irritable bowel disease, irritable bowel syndrome, appendicitis, diverticulitis, malignancy, hernia, urinary tract infection, torsion, perforation, trauma, infectious. Medical Records Attestation: I reviewed the patient's medical records. Home Medications Current Medication List: was personally reviewed by me Laboratory Data Attestation: I reviewed the patient's lab results. Result diagrams: 01/23/19 17:14 01/23/19 17:14 Lab Results 01/23/19 01/23/19 01/23/19 Range/Units 17:14 17:14 17:15 WBC 9.23 (4.8-10.8) K/uL RBC 5.39 (4.7-6.1) M/uL Hgb 16.2 (14.0-18.0) g/dL Hct 45.8 (42-52) % MCV 85.0 (80-100) fL MCH 30.1 (25-34) pg MCHC 35.4 (32-36) g/dL RDW Std Deviation 43.2 (36.4-46.3) fL RDW Coeff of Vasyl 13.8 (11.5-14.5) % Plt Count 177 (130-400) K/uL MPV 9.8 (7.4-10.4) fL Immature Gran % (Auto) 0.3 % Neut % (Auto) 59.6 % Lymph % (Auto) 25.1 % [place] % (Auto) 12.0 % Eos % (Auto) 2.7 % Baso % (Auto) 0.3 % Immature Gran # (Auto) 0.03 H (0.00-0.02) K/uL Neut # (Auto) 5.49 (1.4-6.5) K/uL Lymph # (Auto) 2.32 (1.2-3.4) K/uL [place] # (Auto) 1.11 H (0.11-0.59) K/uL Eos # (Auto) 0.25 (0-0.5) K/uL Baso # (Auto) 0.03 (0-0.2) K/uL Sodium 140 (136-145) mmol/L Potassium 3.5 (3.5-5.1) mmol/L Chloride 104 (98-107) mmol/L Carbon Dioxide 30 (21-32) mmol/L Anion Gap 6.0 (3-11) BUN 5 L (7-18) mg/dl Creatinine 0.91 (0.6-1.4) mg/dl Est Cr Clr Drug Dosing 157.2 ml/min Est GFR ( Amer) 137.2 Est GFR (Non-Af Amer) 118.4 BUN/Creatinine Ratio 5.3 L (10-20) Glucose 104 H (70-99) mg/dl Lactate (0.4-2.0) mmol/L Calcium 9.1 (8.5-10.1) mg/dl Total Bilirubin 0.6 (0.2-1) mg/dl AST 46 H (15-37) U/L ALT 84 H (12-78) U/L Alkaline Phosphatase 95 (45-117) U/L Total Protein 7.4 (6.4-8.2) gm/dl Albumin 4.1 (3.4-5.0) gm/dl Globulin 3.3 (2.5-4.0) gm/dl Albumin/Globulin Ratio 1.2 (0.9-2) Lipase 173 (73-393) U/L Specimen Hemolysis Urine Color Urine Appearance (Clear) Urine pH (4.5-7.5) Ur Specific [place] (1.000-1.030) Urine Protein (Negative) Urine Glucose (UA) (Negative) Urine Ketones (Negative) Urine Blood (Negative) Urine Nitrite (Negative) Urine Bilirubin (Negative) Urine Urobilinogen (Negative) Ur Leukocyte Esterase (Negative) Influenza Type A Ag Neg for Influ A (Neg) Influenza Type B Ag Neg for Influ B (Neg) 01/23/19 01/23/19 Range/Units 17:25 18:42 WBC (4.8-10.8) K/uL RBC (4.7-6.1) M/uL Hgb (14.0-18.0) g/dL Hct (42-52) % MCV (80-100) fL MCH (25-34) pg MCHC (32-36) g/dL RDW Std Deviation (36.4-46.3) fL RDW Coeff of Vasyl (11.5-14.5) % Plt Count (130-400) K/uL MPV (7.4-10.4) fL Immature Gran % (Auto) % Neut % (Auto) % Lymph % (Auto) % [place] % (Auto) % Eos % (Auto) % Baso % (Auto) % Immature Gran # (Auto) (0.00-0.02) K/uL Neut # (Auto) (1.4-6.5) K/uL Lymph # (Auto) (1.2-3.4) K/uL [place] # (Auto) (0.11-0.59) K/uL Eos # (Auto) (0-0.5) K/uL Baso # (Auto) (0-0.2) K/uL Sodium (136-145) mmol/L Potassium (3.5-5.1) mmol/L Chloride (98-107) mmol/L Carbon Dioxide (21-32) mmol/L Anion Gap (3-11) BUN (7-18) mg/dl Creatinine (0.6-1.4) mg/dl Est Cr Clr Drug Dosing ml/min Est GFR ( Amer) Est GFR (Non-Af Amer) BUN/Creatinine Ratio (10-20) Glucose (70-99) mg/dl Lactate 0.5 (0.4-2.0) mmol/L Calcium (8.5-10.1) mg/dl Total Bilirubin (0.2-1) mg/dl AST (15-37) U/L ALT (12-78) U/L Alkaline Phosphatase (45-117) U/L Total Protein (6.4-8.2) gm/dl Albumin (3.4-5.0) gm/dl Globulin (2.5-4.0) gm/dl Albumin/Globulin Ratio (0.9-2) Lipase (73-393) U/L Specimen Hemolysis Urine Color Yellow Urine Appearance Clear (Clear) Urine pH 5.5 (4.5-7.5) Ur Specific [place] 1.020 (1.000-1.030) Urine Protein Negative (Negative) Urine Glucose (UA) Negative (Negative) Urine Ketones Negative (Negative) Urine Blood Negative (Negative) Urine Nitrite Negative (Negative) Urine Bilirubin Negative (Negative) Urine Urobilinogen Negative (Negative) Ur Leukocyte Esterase Negative (Negative) Influenza Type A Ag (Neg) Influenza Type B Ag (Neg) Imaging Data Radiologist's Impression: Radiology results as stated below per my review and the radiologist's interpretation: CT abd pelvis IV con only CLINICAL HISTORY: Left-sided abdominal pain. History of familial adenomatous polyposis. COMPARISON STUDY: May 06, 2018 TECHNIQUE: The patient was scanned in a dynamic helical fashion during intravenous administration of 90 cc Optiray 320. A dose lowering technique was utilized adhering to the principles of ALARA. CT DOSE: 1022.29 mGy.cm FINDINGS: Lower chest: The heart is normal in size and configuration, without pericardial effusion. The lung bases and pleural spaces are clear. Liver: The contrast-enhanced liver is normal in size, contour, and attenuation. There is no intrahepatic biliary ductal dilatation. The hepatic veins and portal veins are patent. Gallbladder: Unremarkable. Spleen: The spleen is mildly enlarged measuring 15 cm Pancreas: Unremarkable. Adrenal glands: Unremarkable. Kidneys: There is symmetric renal cortical enhancement. The kidneys are normal in size without hydronephrosis. Bowel: There are postsurgical changes of a total colectomy with a left lower quadrant ileostomy. There is dilatation of the distal ileal loop just proximal to the ostomy. There is infiltration of the surrounding mesenteric fat. There is mild bowel wall thickening. There are several upstream fluid-filled bowel loops. Peritoneum: There is no intraperitoneal free air or abdominal ascites. Vasculature: The abdominal aorta is normal in course and caliber. Adenopathy: There are mildly prominent mesenteric lymph nodes likely reactive. Pelvic viscera: The bladder, and pelvic viscera are unremarkable. Skeletal structures: No destructive osseous lesions are seen. IMPRESSION: 1. Postsurgical changes of a prior colectomy and left-sided ileostomy 2. Dilatation of the distal ileal loop just proximal to the ostomy with bowel wall thickening and infiltration of the adjacent peritoneal fat. The findings are likely secondary to either an enteritis or ischemia. 3. Splenomegaly Electronically signed by: Dick Morel M.D. 01/23/2019 6:11 PM XR chest 1V portable CLINICAL HISTORY: cough COMPARISON STUDY: 03/13/2017 FINDINGS: The heart is the upper limits of normal in size. Increased interstitial markings, likely relates to technical factors given the age and body habitus and degree of inspiration. There is no focal pulmonary consolidation. There are no pleural effusions. There is no overt failure.[ IMPRESSION: 1. Slight interstitial prominence, a finding likely related to technical factors 2. No evidence of lobar consolidation Electronically signed by: Dick Morel M.D. 01/23/2019 5:38 PM Blood Pressure Blood Pressure Findings: Normal blood pressure Blood Pressure Disposition: further management by hospitalist SYDNEY Narrative Patient is a 23-year-old male with a past medical health history of FAP with bowel resection and ostomy in left lower quadrant who presents the ER for belly pain located around the ostomy associated with cough runny nose which is been present since this . Belly pain started about Friday has been worsening. He notes he is been having good output from his ostomy. Vitals were unremarkable. Labs show no significant leukocytosis or anemia. BMP along with LFTs bilirubin was unremarkable. Lipase is normal. UA was negative. Inf luenza was negative. Chest x-ray with some hilar fullness. CT abdomen pelvis shows enteritis versus ischemia down towards the stoma. Lactate was then drawn. Discussed with general surgery who recommended discussing with GI and admitting to the hospitalist. Discussed with the hospitalist and they are updated bedside. Discussed with GI and they recommended IV Zosyn and they will follow along. Patient was given IV morphine while in the ER as well as IV fluids. Do favor infectious as opposed to ischemic at this time. Impression & Plan Abdominal pain, Enteritis Discharge Plan Visit Data *Final* Discharge Date/Time: 01/23/19 19:20 Chief Complaint: GI Assessment Stated Complaint: thoart pain ED Provider: Myron Lara Discharge Problem: Abdominal pain, Enteritis Patient Disposition: Admitted As Inpatient Discharge Instructions Interventions: ED Discharge Assessment Last Done: 01/23/19 19:20 Discharge Problem: Abdominal pain Qualifiers: Abdominal location: left lower quadrant Qualified Code(s): R10.32 - Left lower quadrant pain The scribe's documentation has been prepared under my direction and personally reviewed by me in its entirety. I confirm that the note above accurately reflects all work, treatment, procedures, and medical decision making performed by me.
[2019-01-23] MEDS: CIPROFLOXACIN 400 MG/200 ML BAG IV SCH (20:53)
[2019-01-23] MEDS: metroNIDAZOLE 500 MG/100 ML BAG IV SCH (20:53)
--- NOTE | 2019-01-23 21:29 | History & Physical Report ---
Date of Service January 23, 2019 Assessment & Plan (1) Enteritis: Obtain stool culture and stool for C. difficile toxin assay. Clear liquid diet. Treat with intravenous Cipro and Flagyl. Serial lab studies. GI consultation Present on Admission?: Yes (2) History of colectomy: Ileostomy appears to be functioning. Discomfort is centered around the ileostomy however. General surgery will be consulted Present on Admission?: Yes (3) DVT prophylaxis: Early ambulation History of Present Illness Chief Complaint: Abdominal pain Primary Care Provider: Farzana Goel 23-year-old male status post total colectomy in 2009 for familial polyposis. He has a left lower quadrant ileostomy. He developed pain in the region of the ostomy but the ostomy continues to function. He denies fever or chills. No vomiting. Output through the ileostomy has been normal. CT scan done in the ED reveals evidence of enteritis in the region of the ileostomy. The ED physician has contacted [facility] who will see the patient while hospitalized. Stool cultures and C. difficile toxin assay have been ordered. He will be placed on intravenous Cipro and Flagyl, clear liquid diet, IV fluids. Serial lab studies are ordered Allergies Allergy/AdvReac Type Severity Reaction Status Date / Time NSAIDS (Non-Steroidal Allergy Unknown hemophilia Verified 01/23/19 17:34 Anti-Inflamma aspirin AdvReac Unknown hemophilia Verified 01/23/19 17:34 Home Medications Home Medications Medication Instructions Recorded Confirmed Type acetaminophen [Tylenol Extra 1,000 mg PO Q6H PRN 05/06/18 01/23/19 History Strength] cannabidiol (CBD) extract 0 mg PO DIRECTED PRN 01/23/19 01/23/19 History glycopyrrolate 1 mg PO TID 01/23/19 01/23/19 History venlafaxine 75 mg PO DAILY 01/23/19 01/23/19 History Past Med/Surg History Medical History Dehydration (Acute) ARF (acute renal failure) (Acute) Nausea vomiting and diarrhea (Acute) Hypokalemia (Acute) Abdominal wall pain (Acute) At risk for complication of stoma (Acute) Complication of catheter (Acute) Encounter for intravenous line placement (Acute) Epigastric abdominal pain (Acute) GI bleed (Acute) Hematuria (Acute) Left upper quadrant pain (Acute) Right lower quadrant abdominal pain (Acute) Right sided abdominal pain (Acute) Skin irritation (Acute) Stoma dermatitis (Acute) Urinary retention (Acute) Surgical History H/O colectomy (Resolved) Family History Other H/O colectomy Social History Preferred Language: Slovak Feels Safe at Home: Yes Smoking Status: Light tobacco smoker Review of Systems Review of Systems: All systems reviewed & are unremarkable except as noted in HPI & below Gastrointestinal: + abdominal pain (Left lower quadrant in the area of the ileostomy); no blood in stools Physical Exam Constitutional: WD/WN, vitals as above + obese Eyes: PERRL, conjunctivae normal, anicteric sclerae ENMT: external ear and nose normal, oropharynx normal Neck: trachea midline, no thyromegaly Respiratory: normal respiratory effort, lungs clear to auscultation Cardiovascular: RRR, no murmur, no edema Musculoskeletal: no cyanosis or clubbing, extremities motor strength 5/5 Skin: no rashes, warm and dry Neurologic: CN's II-XI intact bilaterally and moves all extremities; no focal motor deficits Results & Data Vital Signs (Past 12 Hours) Vital Signs Temp Pulse Pulse Resp BP BP Pulse Ox 01/23/19 18:40 86 17 136/69 95 01/23/19 17:27 84 17 142/68 H 96 01/23/19 16:42 36.8 C 98 H 18 148/87 H 100 Laboratory Results 01/23/19 17:14 01/23/19 17:14
[2019-01-23] MEDS: MoRPHine SULFATE 2 MG/ML CARP IV PRN (22:31)
[2019-01-23] MEDS: PIPERACILLIN/TAZOBACTAM 3.375 GM in DEXTROSE 5% 100 ML IV SCH (23:23)
[2019-01-23] MEDS: ONDANSETRON INJ 2 MG/ML 2 ML VIAL IV PRN (23:23)
[2019-01-24] MEDS: MoRPHine SULFATE 2 MG/ML CARP IV PRN ×4 (01:58→19:56)
[2019-01-24] MEDS: metroNIDAZOLE 500 MG/100 ML BAG IV SCH ×3 (03:39→19:56)
[2019-01-24] MEDS: SODIUM CHLORIDE 0.9% 1000ML 1,000 ML IV SCH ×2 (06:43→16:28)
[2019-01-24 08:16] LABS: Basophils # (auto) 0.02 K/uL (0-0.2); Basophils % (auto) 0.3 %; Eosinophils # (auto) 0.31 K/uL (0-0.5); Eosinophils % (auto) 4.2 %; Hematocrit (blood only) 42.3 % (42-52); Hemoglobin 14.3 g/dL (14.0-18.0); Immature Granulocytes # (auto) 0.02 K/uL (0.00-0.02); Immature Granulocytes % (auto) 0.3 %; Lymphocytes # (auto) 1.83 K/uL (1.2-3.4); Lymphocytes % (auto) 24.8 %; Mean Corpuscular Hgb Conc 33.8 g/dL (32-36); Mean Corpuscular Volume 85.3 fL (80-100); Mean Platelet Volume 9.9 fL (7.4-10.4); Monocytes # (auto) 0.91 K/uL (0.11-0.59); Monocytes % (auto) 12.3 %; Neutrophils # (auto) 4.29 K/uL (1.4-6.5); Neutrophils % (auto) 58.1 %; Platelet Count 164 K/uL (130-400); RDW Coefficient of Variation 14.2 % (11.5-14.5); RDW Standard Deviation 44.3 fL (36.4-46.3); Red Blood Count 4.96 M/uL (4.7-6.1); White Blood Count 7.38 K/uL (4.8-10.8)
--- NOTE | 2019-01-24 08:35 | Surgery Consultation ---
Date of Consultation January 24, 2019 Assessment & Plan (1) Enteritis: Agree with GI consult Agree with IV abx Ostomy pink and working well WBC normal and no fevers Very unlikely ischemic but IVF and IV abx will treat enteritis of either ischemic or infectious origin No acute surgical issues History of Present Illness Attending Physician: Myron Isaac DO History of Present Illness This is a 23-year-old male s/p total colectomy in 2009 for familial polyposis who also required a revision of his ileostomy. It currently exists in his LLQ. He began having pain in the region of the ostomy about a week ago and got worse last night. He has had previous bouts of similar pain. The ostomy continues to function. He denies fever or chills, nor vomiting. His output through the ileostomy has been normal. A CT scan done in the ED reveals evidence of enteritis in the region of the ileostomy. Allergies Allergy/AdvReac Type Severity Reaction Status Date / Time NSAIDS (Non-Steroidal Allergy Unknown hemophilia Verified 01/23/19 17:34 Anti-Inflamma aspirin AdvReac Unknown hemophilia Verified 01/23/19 17:34 Home Medications Home Medications Medication Instructions Recorded Confirmed Type acetaminophen [Tylenol Extra 1,000 mg PO Q6H PRN 05/06/18 01/23/19 History Strength] cannabidiol (CBD) extract 0 mg PO DIRECTED PRN 01/23/19 01/23/19 History glycopyrrolate 1 mg PO TID 01/23/19 01/23/19 History venlafaxine 75 mg PO DAILY 01/23/19 01/23/19 History Patient History Medical History DVT prophylaxis Enteritis (Acute) Dehydration (Acute) ARF (acute renal failure) (Acute) Nausea vomiting and diarrhea (Acute) Hypokalemia (Acute) Abdominal wall pain (Acute) At risk for complication of stoma (Acute) Complication of catheter (Acute) Encounter for intravenous line placement (Acute) Epigastric abdominal pain (Acute) GI bleed (Acute) Hematuria (Acute) History of colectomy (Chronic) Left upper quadrant pain (Acute) Right lower quadrant abdominal pain (Acute) Right sided abdominal pain (Acute) Skin irritation (Acute) Stoma dermatitis (Acute) Urinary retention (Acute) Surgical History H/O colectomy (Resolved) Family History Other H/O colectomy Social History Preferred Language: Yoruba Communication Ability: Effective Mammal Keeper Required: No Beliefs That Will Affect Care: None Other Information That Helps Us Care for You: No Feels Safe at Home: Yes Safety Concerns: Feels Safe At This Time Smoking Status: Current some day smoker Tobacco Type: cigarettes Cigarettes Per Day: on occassional basis Do You Dip or Chew Tobacco: No Hx Alcohol Use: No Review of Systems Constitutional: no fever, no chills, no sweats, no body aches and no weight loss Ear, Nose, Mouth, Throat: no problem reported Respiratory: + cough and + chest congestion; no change in sputum and no dyspnea Cardiovascular: no chest pain and no dyspnea Gastrointestinal: + abdominal pain and + bloating; no belching, no early satiety, no nausea, no vomiting and no change in stools Genitourinary: no problem reported Musculoskeletal: no back pain, no neck pain and no joint pain Integumentary: no problem reported Neurologic: no problem reported Psychiatric: no problem reported Endocrine: no problem reported Hematologic / Lymphatic: no problem reported Allergy / Immunological: no problem reported Physical Exam Constitutional: WD/WN, vitals as above + obese Eyes: no conjunctival abnormality ENMT: external ear and nose normal, oropharynx normal Neck: trachea midline Respiratory: normal respiratory effort, lungs clear to auscultation Cardiovascular: RRR, no murmur, no edema Gastrointestinal (Abdomen): Inspection/Auscultation: normal bowel sounds Percussion/Palpation: + abdomen tender (minimal) and abdomen soft; no guarding ileostomy pink and patent multiple healed scars without hernia Musculoskeletal: Head/Neck/Chest: normocephalic and neck supple Skin: no rashes, warm and dry Neurologic: moves all extremities; no focal motor deficits Psychiatric: Orientation: alert and oriented x 3 Lymphatic: no lymphadenopathy Results & Data Vital Signs (Past 12 Hours) Vital Signs Temp Pulse Resp BP Pulse Ox 01/24/19 07:07 36.9 C 77 18 149/88 H 94 01/23/19 23:52 37.1 C 71 20 118/[address] abd pelvis IV con only CLINICAL HISTORY: Left-sided abdominal pain. History of familial adenomatous polyposis. COMPARISON STUDY: May 06, 2018 TECHNIQUE: The patient was scanned in a dynamic helical fashion during intravenous administration of 90 cc Optiray 320. A dose lowering technique was utilized adhering to the principles of ALARA. CT DOSE: 1022.29 mGy.cm FINDINGS: Lower chest: The heart is normal in size and configuration, without pericardial effusion. The lung bases and pleural spaces are clear. Liver: The contrast-enhanced liver is normal in size, contour, and attenuation. There is no intrahepatic biliary ductal dilatation. The hepatic veins and portal veins are patent. Gallbladder: Unremarkable. Spleen: The spleen is mildly enlarged measuring 15 cm Pancreas: Unremarkable. Adrenal glands: Unremarkable. Kidneys: There is symmetric renal cortical enhancement. The kidneys are normal in size without hydronephrosis. Bowel: There are postsurgical changes of a total colectomy with a left lower quadrant ileostomy. There is dilatation of the distal ileal loop just proximal to the ostomy. There is infiltration of the surrounding mesenteric fat. There is mild bowel wall thickening. There are several upstream fluid-filled bowel loops. Peritoneum: There is no intraperitoneal free air or abdominal ascites. Vasculature: The abdominal aorta is normal in course and caliber. Adenopathy: There are mildly prominent mesenteric lymph nodes likely reactive. Pelvic viscera: The bladder, and pelvic viscera are unremarkable. Skeletal structures: No destructive osseous lesions are seen. IMPRESSION: 1. Postsurgical changes of a prior colectomy and left-sided ileostomy 2. Dilatation of the distal ileal loop just proximal to the ostomy with bowel wall thickening and infiltration of the adjacent peritoneal fat. The findings ar e likely secondary to either an enteritis or ischemia. 3. Splenomegaly
[2019-01-24] MEDS: CIPROFLOXACIN 400 MG/200 ML BAG IV SCH ×2 (08:36→20:57)
[2019-01-24] MEDS: PIPERACILLIN/TAZOBACTAM 3.375 GM in DEXTROSE 5% 100 ML IV SCH (08:36)
[2019-01-24] MEDS: VENLAFAXINE HCL XR 75 MG CAPXR PO SCH (08:37)
[2019-01-24 08:41] LABS: BUN Creatinine Ratio 3.4 (10-20); Calcium 8.3 mg/dl (8.5-10.1); Creatinine Clr Calc Pharmacy 176.6 ml/min; Est GFR (African American) 145.2; Est GFR (Non-African American) 125.3; Potassium 3.5 mmol/L (3.5-5.1)
[2019-01-24] MEDS: ONDANSETRON INJ 2 MG/ML 2 ML VIAL IV PRN (10:09)
[2019-01-24] MEDS: OXYCODONE/ACETAMINOPHEN 5mg/325mg TAB PO PRN ×3 (12:30→21:01)
--- NOTE | 2019-01-24 13:41 | Gastrointestinal Consultation ---
Date of Consultation January 24, 2019 Assessment & Plan (1) Enteritis: Differential includes infection most likely, inflammatory and ischemic (doubt given age group, normal lactate, nl WBC, no fever). Continue supportive care with abx. Await stool culture. 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 Pt with FAP s/p colectomy with ileostomy about 2009 who also has yearly EGD by DR Cervantes at [facility] (last 02/2018 for stomach and duodenal adenomas) who present with few day of cough and rhinonrrhea but also abd pain in near ostomy but deeper. Pt states he has chornic ostomy pain and had revisions before last 1-2 years ago. Has had prolapse but not this time. Stool output at first seemed less and he took some stool softerners and gas x. The stool output returned but pain did not improve with max 8/10 (currently 5/10 and tolerating liquid diet). No bloody nor black stools .WBC nl, lactate nl, no fever. CMP elevated LFTS stable and per patient known by [facility] with unclear etiology. CT on admit distal ileal distension and thickening proximal to ostomy enteritis vs ischemia per report, reactive mesenteric nodes. Pt states he gets hard black balls out of ostomy that can perforate his bag and there is plan for EGD and ileoscopy at [facility] later this month. Stool this admit Cdiff neg, Cx pending. 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 Allergies Allergy/AdvReac Type Severity Reaction Status Date / Time NSAIDS (Non-Steroidal Allergy Unknown hemophilia Verified 01/23/19 17:34 Anti-Inflamma aspirin AdvReac Unknown hemophilia Verified 01/23/19 17:34 Home Medications Home Medications Medication Instructions Recorded Confirmed Type acetaminophen [Tylenol Extra 1,000 mg PO Q6H PRN 05/06/18 01/23/19 History Strength] cannabidiol (CBD) extract 0 mg PO DIRECTED PRN 01/23/19 01/23/19 History glycopyrrolate 1 mg PO TID 01/23/19 01/23/19 History venlafaxine 75 mg PO DAILY 01/23/19 01/23/19 History Patient History Medical History DVT prophylaxis Enteritis (Acute) Dehydration (Acute) ARF (acute renal failure) (Acute) Nausea vomiting and diarrhea (Acute) Hypokalemia (Acute) Abdominal wall pain (Acute) At risk for complication of stoma (Acute) Complication of catheter (Acute) Encounter for intravenous line placement (Acute) Epigastric abdominal pain (Acute) GI bleed (Acute) Hematuria (Acute) History of colectomy (Chronic) Left upper quadrant pain (Acute) Right lower quadrant abdominal pain (Acute) Right sided abdominal pain (Acute) Skin irritation (Acute) Stoma dermatitis (Acute) Urinary retention (Acute) Surgical History H/O colectomy (Resolved) Family History Other H/O colectomy Social History Preferred Language: Slovenian Communication Ability: Effective Beef Grader Required: No Beliefs That Will Affect Care: None Other Information That Helps Us Care for You: No Feels Safe at Home: Yes Safety Concerns: Feels Safe At This Time Smoking Status: Current some day smoker Tobacco Type: cigarettes Cigarettes Per Day: on occassional basis Do You Dip or Chew Tobacco: No Hx Alcohol Use: No Review of Systems Review of Systems: All systems reviewed & are unremarkable except as noted in HPI & below Physical Exam Constitutional: WD/WN, vitals as above Eyes: PERRL, conjunctivae normal, anicteric sclerae ENMT: external ear and nose normal, oropharynx normal Neck: trachea midline, no thyromegaly Respiratory: normal respiratory effort, lungs clear to auscultation Cardiovascular: RRR, no murmur, no edema Gastrointestinal (Abdomen): pos bs, LLQ ostomy with bilious fluid output, soft no guarding nor rebound. Musculoskeletal: no cyanosis or clubbing, extremities motor strength 5/5 Neurologic: PERRL, EOMI, accommodation nl, no face palsy, no dysarthria Psychiatric: A+Ox3, euthymic affect Results & Data Vital Signs (Past 12 Hours) Vital Signs Temp Pulse Resp BP Pulse Ox 01/24/19 07:07 36.9 C 77 18 149/88 H 94
--- NOTE | 2019-01-24 14:04 | Family Medicine Progress Note ---
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 Enteritis Could he presented with focal pain to the left lateral side of his ostomy site. He has not had increased ostomy output, although he notes he has had some hard black pellets occasionally in his ostomy bag; none today. No melena or BRBPR. He has not had any fevers or chills, no signs of sepsis. Lactate negative, C. difficile PCR negative, stool cultures pending. - GI consulted. Appreciate recommendations. Likely infectious in origin, differential includes inflammatory. Ischemic less likely given negative lactate. Continue empiric Cipro/Flagyl, clear liquid diet, IVF M. CBC, BMP daily -Surgery consult on admission, agree with GI recs, no acute surgical issues. Appreciate recommendations. Transaminitis Chronic, at baseline. Follow-up as outpatient, re-trend if clinical presentation changes Hemophilia A Hemoglobin stable, 16.2 today. No clinical signs of bleeding, no melena, no bright red blood per rectum. Trend H&H, follow clinically Diet: Clear liquid. HNS+10KCl 100cc/hr IVFM DVT prophylaxis: Low risk in the setting of hemophilia A. Disposition: Follow clinically, discharge once stable and improving clinically and able to tolerate p.o. Will have follow-up with his outpatient GI. (2) Hemophilia A: (3) Enteritis: Supervising Physician Co-Signing Physician Notes I personally examined the patient and verified all munson points of history and exam, discussed case, and agree with decision making with Dr Perez. Feeling better. Pain improving. Still there. Better than before. Vitals noted, in general he is awake and alert pleasant no distress. His abdomen is soft but quite tender around his stoma, but no guarding/rebound/rigidity. Enteritiscontinue empiric antibiotics and supportive care. Advance diet. If he tolerates a full/low fiber diet, hopefully oral antibiotics at home tomorrow. Otherwise as above. Subjective Reynaldo reports he continues to have some discomfort in his left abdomen near his ostomy site. He does not have other diffuse pain or rebound tenderness. Reports his appetite is okay. He notes that he has intermittently had some hard black pellet-like discharge into his ostomy bag in the past, none today. No increased ostomy output. Denies fever, chills, sweats, muscle aches, body aches, bleeding, diaphoresis, shortness of breath. Review of Systems Review of Systems: All systems reviewed & are unremarkable except as noted in HPI & below Physical Exam Physical Exam: General: A&Ox3. NAD. Cooperative. Skin intact, no signs of bleeding. HEENT: Atraumatic, normocephalic. Pulm: CTAB A&P. -wheezes, -rales, -rhonchi. Symmetrical chest rise. No increase work of breathing. No respiratory distress. Cardiac: RRR, -mrg. Radial pulses intact and symmetrical. Abdominal: Ostomy bag present, small amounts of output. Focally tender to palpation at left ostomy border, without guarding or rebound tenderness. Rest of abdominal exam is benign, soft. Bowel sounds intact. Results & Data Vital Signs (Past 12 Hours) Vital Signs Temp Pulse Resp BP Pulse Ox 01/24/19 07:07 36.9 C 77 18 149/88 H 94 Resident Activity Tracking Resident Involvement: Resident Care Provided Care Provided: Adult Hospital Medicine
[2019-01-25] MEDS: metroNIDAZOLE 500 MG/100 ML BAG IV SCH ×2 (04:11→13:20)
[2019-01-25] MEDS: SODIUM CHLORIDE 0.9% 1000ML 1,000 ML IV SCH ×3 (04:14→17:07)
[2019-01-25] MEDS: OXYCODONE/ACETAMINOPHEN 5mg/325mg TAB PO PRN ×4 (04:14→17:05)
[2019-01-25 07:15] LABS: Basophils # (auto) 0.02 K/uL (0-0.2); Basophils % (auto) 0.3 %; Eosinophils % (auto) 5.4 %; Hematocrit (blood only) 43.6 % (42-52); Hemoglobin 14.6 g/dL (14.0-18.0); Immature Granulocytes # (auto) 0.01 K/uL (0.00-0.02); Immature Granulocytes % (auto) 0.1 %; Lymphocytes # (auto) 3.04 K/uL (1.2-3.4); Lymphocytes % (auto) 41.2 %; Mean Corpuscular Hgb Conc 33.5 g/dL (32-36); Mean Corpuscular Volume 86.5 fL (80-100); Monocytes # (auto) 0.82 K/uL (0.11-0.59); Monocytes % (auto) 11.1 %; Neutrophils # (auto) 3.09 K/uL (1.4-6.5); Neutrophils % (auto) 41.9 %; Platelet Count 179 K/uL (130-400); RDW Coefficient of Variation 14.2 % (11.5-14.5); RDW Standard Deviation 44.8 fL (36.4-46.3); Red Blood Count 5.04 M/uL (4.7-6.1); White Blood Count 7.38 K/uL (4.8-10.8)
[2019-01-25] MEDS: ONDANSETRON INJ 2 MG/ML 2 ML VIAL IV PRN ×2 (07:22→16:58)
[2019-01-25 07:52] LABS: Albumin Level 3.3 gm/dl (3.4-5.0); BUN Creatinine Ratio 4.4 (10-20); Calcium 8.9 mg/dl (8.5-10.1); Creatinine Clr Calc Pharmacy 160.7 ml/min; Est GFR (African American) 139.7; Est GFR (Non-African American) 120.5; Potassium 3.7 mmol/L (3.5-5.1)
[2019-01-25 07:56] LABS: Albumin Globulin Ratio 1.1 (0.9-2); Bilirubin,Total 0.6 mg/dl (0.2-1); Total Protein 6.3 gm/dl (6.4-8.2)
[2019-01-25] MEDS: VENLAFAXINE HCL XR 75 MG CAPXR PO SCH (09:17)
[2019-01-25] MEDS: CIPROFLOXACIN 400 MG/200 ML BAG IV SCH (09:17)
--- NOTE | 2019-01-25 14:29 | Surgery Progress Note ---
Date of Service January 25, 2019 Assessment & Plan (1) Enteritis: Ostomy pink and working well WBC normal and no fevers Very unlikely ischemic but IVF and IV abx will treat enteritis of either ischemic or infectious origin No acute surgical issues Plan: continue conservative treatment: Continue IV Antibiotics, IV pain management as needed Would continue Full liquids for today as had increasing pain with regular diet last night continue medical management will follow Dr. Maldonado has seen and examined patient, agrees with above. Please see addendum for further recommendations/plan Supervising Physician Co-Signing Physician Notes I have seen and evaluated the patient and reviewed the medical record. I agree with the documentation as provided in this note by Jaleesa Modi PA-C. Subjective still having pain ostomy still functioning had regular food last night which caused pain, now back on full liquids for today no nausea or vomiting Physical Exam Constitutional: WD/WN, vitals as above well developed and well nourished; no acute distress Respiratory: normal respiratory effort; no respiratory distress Gastrointestinal (Abdomen): Inspection/Auscultation: abdomen normal to inspection; abdomen not distended Percussion/Palpation: + abdomen tender (in the LLQ at ostomy site), + guarding (in LLQ on palpation) and abdomen soft; abdomen not rigid ostomy is pink and functioning with loose stool present Skin: no rashes, warm and dry Psychiatric: A+Ox3, euthymic affect Results & Data Vital Signs (Past 12 Hours) Vital Signs Temp Pulse Resp BP Pulse Ox 01/25/19 07:07 36.7 C 58 L 18 145/85 H 95 Laboratory Results 01/25/19 01/25/19 Range/Units 06:44 06:44 WBC 7.38 (4.8-10.8) K/uL RBC 5.04 (4.7-6.1) M/uL Hgb 14.6 (14.0-18.0) g/dL Hct 43.6 (42-52) % MCV 86.5 (80-100) fL MCH 29.0 (25-34) pg MCHC 33.5 (32-36) g/dL RDW Std Deviation 44.8 (36.4-46.3) fL RDW Coeff of Vasyl 14.2 (11.5-14.5) % Plt Count 179 (130-400) K/uL MPV 10.0 (7.4-10.4) fL Immature Gran % (Auto) 0.1 % Neut % (Auto) 41.9 % Lymph % (Auto) 41.2 % Barron % (Auto) 11.1 % Eos % (Auto) 5.4 % Baso % (Auto) 0.3 % Immature Gran # (Auto) 0.01 (0.00-0.02) K/uL Neut # (Auto) 3.09 (1.4-6.5) K/uL Lymph # (Auto) 3.04 (1.2-3.4) K/uL Barron # (Auto) 0.82 H (0.11-0.59) K/uL Eos # (Auto) 0.40 (0-0.5) K/uL Baso # (Auto) 0.02 (0-0.2) K/uL Sodium 142 (136-145) mmol/L Potassium 3.7 (3.5-5.1) mmol/L Chloride 107 (98-107) mmol/L Carbon Dioxide 31 (21-32) mmol/L Anion Gap 4.0 (3-11) BUN 4 L (7-18) mg/dl Creatinine 0.89 (0.6-1.4) mg/dl Est Cr Clr Drug Dosing 160.7 ml/min Est GFR ( Amer) 139.7 Est GFR (Non-Af Amer) 120.5 BUN/Creatinine Ratio 4.4 L (10-20) Glucose 94 (70-99) mg/dl Calcium 8.9 (8.5-10.1) mg/dl Total Bilirubin 0.6 (0.2-1) mg/dl AST 40 H (15-37) U/L ALT 66 (12-78) U/L Alkaline Phosphatase 73 (45-117) U/L Total Protein 6.3 L (6.4-8.2) gm/dl Albumin 3.3 L (3.4-5.0) gm/dl Globulin 3.0 (2.5-4.0) gm/dl Albumin/Globulin Ratio 1.1 (0.9-2)
--- NOTE | 2019-01-25 15:34 | Gastroenterology Progress Note ---
Date of Service January 25, 2019 Assessment & Plan (1) Enteritis: Differential includes infection most likely, inflammatory and ischemic (doubt given age group, normal lactate, nl WBC, no fever). Continue supportive care with abx. Await stool culture--no growth so far If continues to improve can f/u with DR Cervantes GI at [facility] with ileoscopy this month elevated LFTS---improved----f/u with GI at [facility] (2) Hemophilia A: Subjective cc f/u abd pain HPI Had increase abd pain with solid food last night. So far today on full liquids not much pain. Review of Systems Respiratory: no dyspnea Cardiovascular: no chest pain Physical Exam Constitutional: WD/WN, vitals as above Respiratory: normal respiratory effort, lungs clear to auscultation Gastrointestinal (Abdomen): pos bs, LLQ ostomy with bile fluid, no guarding nor rebound Psychiatric: A+Ox3, euthymic affect Results & Data Vital Signs (Past 12 Hours) Vital Signs Temp Pulse Resp BP Pulse Ox 01/25/19 07:07 36.7 C 58 L 18 145/85 H 95
--- NOTE | 2019-01-25 17:31 | Discharge Summary ---
Date of Service January 25, 2019 Admission HPI Per Admitting Provider 23-year-old male status post total colectomy in 2009 for familial polyposis. He has a left lower quadrant ileostomy. He developed pain in the region of the ostomy but the ostomy continues to function. He denies fever or chills. No vomiting. Output through the ileostomy has been normal. CT scan done in the ED reveals evidence of enteritis in the region of the ileostomy. The ED physician has contacted [facility] who will see the patient while hospitalized. Stool cultures and C. difficile toxin assay have been ordered. He will be placed on intravenous Cipro and Flagyl, clear liquid diet, IV fluids. Serial lab studies are ordered Principal Diagnosis Ileostomy enteritis Discharge Exam Constitutional WD/WN, vitals as above Respiratory normal respiratory effort, lungs clear to auscultation Cardiovascular RRR, no murmur, no edema Gastrointestinal (Abdomen) normal bowel sounds, soft, nontender, no hepatosplenomegaly ileostomy +. Non tender. Greenish liquid stool in the bag Psychiatric A+Ox3, euthymic affect Discharge Data Allergies Allergy/AdvReac Type Severity Reaction Status Date / Time NSAIDS (Non-Steroidal Allergy Unknown hemophilia Verified 01/23/19 17:34 Anti-Inflamma aspirin AdvReac Unknown hemophilia Verified 01/23/19 17:34 Consultations 01/23/19 18:39 ED Decision to Admit Stat 01/23/19 19:52 Consult Gastroenterology Routine Consult General Surgery Routine Ordered Studies 01/23/19 16:57 CT abd pelvis IV con only Stat Hospital Course (1) Enteritis: Reynaldo is a 23-year-old male with a past medical history of total colectomy in 2009 2/2 familial adenomatous polyposis, and hemophilia A who presented to the hospital for pain at his ostomy site. Enteritis Ct scan - Dilatation of the distal ileal loop just proximal to the ostomy with bowel wall thickening and infiltration of the adjacent peritoneal fat. - No melena or BRBPR. He has not had any fevers or chills, no signs of sepsis. Lactate negative, C. difficile PCR negative, stool cultures came back negative in 24hrs Kept on IV Cipro/Flagyl, clear liquid diet, and IVF. Didn't tolerate solids - reverted back to full liquid and discharged home on it and to finish course of cipro and flagyl - GI recommended to follow up with [facility] as sched uled. May need ileoscopy. -Surgery was also consulted on admission, no acute surgical issues. Transaminitis Chronic, at baseline. Follow-up as outpatient Hemophilia A Hemoglobin stable Total Time Total Time Spent Total Time Spent (In Minutes): 35 Discharge Plan Discharge Items Patient Disposition: Home - Self-Care Reason For Visit: ENTERITIS Discharge Diagnosis: Enteritis Discharge Goals: Decrease discomfort Activity: Resume your previous activity Non-emergency contact: Primary Care Provider Call non-emergency contact if: you have any medication questions and your symptoms worsen Follow-up/Referrals: Farzana Goel [Primary Care Provider] - 01/28/19 2:10 pm (A follow up appoi ntment has been made for you with Britney Goel on January 28 at 2:10pm.) Diet: Full liquid Diet Comment: Full liquid for 3-4 days and then slowly advance to solid diet. Addtl Provider Instructions: Follow up with family physician in one week Follow up with Ambulatory Care Coordinator at [facility] in 2-4 wks as scheduled Prescriptions: New metronidazole 500 mg Tablet 500 mg PO TID Qty: 14 RF: 0 ciprofloxacin HCl 500 mg Tablet 500 mg PO BID Qty: 14 RF: 0 Continued acetaminophen [Tylenol Extra Strength] 500 mg Tablet 1,000 mg PO Q6H PRN (Reason: Fever Or Pain) RF: 0 glycopyrrolate 1 mg tablet 1 mg PO TID RF: 0 cannabidiol (CBD) extract 100 mg/mL Solution PO DIRECTED PRN (Reason: Pain) RF: 0 venlafaxine 75 mg capsule,extended release 24hr 75 mg PO DAILY RF: 0 Stand-Alone Forms: [facility] Discharge Orders: Discharge Order (Routine); Ordered 01/25/19 Ordered By: Carol Jiang Admission Data Admit Date/Time: 01/23/19 18:49 Attending Provider: Carol Jiang Admit Provider: Blade Patel Primary Care Provider: Farzana Goel Other Providers: Blade Patel ; Ray Gabriel ; Berhane Infante ; Myron Isaac Service: Medical
[2019-01-25] MEDS ORDERED: metroNIDAZOLE 500 MG TAB PO SCH (21:00)
[2019-01-25] MEDS ORDERED: CIPROFLOXACIN 500 MG TAB PO SCH (21:00)
== END 2019-01-25 18:16 | disposition home or self-care (01) | DRG 371 ==
LOC: ED 16:33 → SUATTDRO 18:49 → 4W 18:49